=== PATIENT | female | born 1975 | race Caucasian/White ===

== ENCOUNTER 2018-07-13 00:19 | Inpatient (IN) ==
[2018-07-13] MEDS ORDERED: ONDANSETRON INJ 2 MG/ML 2 ML VIAL IV STA (00:38)
[2018-07-13] MEDS ORDERED: MoRPHine SULFATE 4 MG/ML 1 ML CARP\\VIAL IV STA (00:38)
[2018-07-13] MEDS ORDERED: VANCOMYCIN CONSULT ACTIVE PRN (00:39)
[2018-07-13] MEDS ORDERED: VANCOMYCIN HCL 1,000 MG/270 ML BAG IV STA (00:39)
[2018-07-13] MEDS ORDERED: PIPERACILL/TAZOBAC CONSULT ACTIVE PRN (00:42)
[2018-07-13] MEDS ORDERED: PIPERACILLIN/TAZOBACTAM 4.5 GM/120 ML BAG IV ONE (00:42)
[2018-07-13] MEDS ORDERED: SODIUM CHLORIDE 0.9% 1000ML 1,000 ML IV SCH (00:45)
[2018-07-13 01:09] LABS: Basophils # (auto) 0.02 K/uL (0-0.2); Basophils % (auto) 0.1 %; Eosinophils # (auto) 0.28 K/uL (0-0.5); Eosinophils % (auto) 1.4 %; Hematocrit (blood only) 43.8 % (37-47); Hemoglobin 14.9 g/dL (12.0-16.0); Immature Granulocytes # (auto) 0.08 K/uL (0.00-0.02); Immature Granulocytes % (auto) 0.4 %; Lymphocytes # (auto) 1.36 K/uL (1.2-3.4); Lymphocytes % (auto) 6.8 %; Mean Corpuscular Volume 96.9 fL (80-100); Mean Platelet Volume 9.8 fL (7.4-10.4); Monocytes # (auto) 1.45 K/uL (0.11-0.59); Monocytes % (auto) 7.2 %; Neutrophils # (auto) 16.91 K/uL (1.4-6.5); Neutrophils % (auto) 84.1 %; Platelet Count 222 K/uL (130-400); RDW Coefficient of Variation 14.8 % (11.5-14.5); RDW Standard Deviation 52.4 fL (36.4-46.3); Red Blood Count 4.52 M/uL (4.2-5.4)
[2018-07-13 01:21] LABS: Albumin Level 3.1 gm/dl (3.4-5.0); BUN Creatinine Ratio 10.3 (10-20); Calcium 7.7 mg/dl (8.5-10.1); Creatinine Clr Calc Pharmacy 120.5 ml/min; Est GFR (African American) 135.6; Potassium 3.7 mmol/L (3.5-5.1)
[2018-07-13 01:24] LABS: Bilirubin,Total 0.5 mg/dl (0.2-1); Globulin 3.1 gm/dl (2.5-4.0); Total Protein 6.2 gm/dl (6.4-8.2)
[2018-07-13] MEDS ORDERED: IOVERSOL 100ml IV PRN (01:50)
[2018-07-13] MEDS ORDERED: HYDROmorphone INJ 0.5 MG/0.5 ML SYR IV STA ×2 (01:58→02:39)
--- NOTE | 2018-07-13 03:16 | History & Physical Report ---
Date of Service July 13, 2018 Assessment & Plan (1) Facial abscess: Ms. Bojorquez is a 42-year-old female who presents to the emergency department due to right-sided facial pain and swelling. ED course: 4mg IV morphine sulfate, 4mg IV zofran, 4.5g IV Zosyn, 1g IV vancomycin, 1L NS bolus, 0.5mg dilaudid x2. -admit to med/surg -patient afebrile, but does have an elevated WCC of 20.10. Lactate level normal. -CT neck -> 3.3 x 0.8cm abscess along right hemimandible w/regional soft tissue swelling and reactive lymphadenopathy. -no airway compromise -bcx drawn and pending -ENT consult -> abscess will likely require drainage -NPO -Received zosyn and vancomycin in ED -> continue zosyn, with additional of flagyl -1g IV Tylenol q8h and 1mg dilaudid q4h prn pain -zofran 4mg q6h prn nausea Epigastric Pain -likely secondary to poor PO intake & high dose ibuprofen use -40mg IV Protonix daily ordered, can transition to PO when able -caution w/further NSAID use Smoking Hx -pt states she does not want nicotine patch at this time -smoking cessation counselling Code status: FULL DVT Prophylaxis: SCDs in anticipation of abscess drainage Disposition: admit to med/surg F/E/N: NPO. No significant electrolyte abnormalities noted. LR @ 100mls/hr x2 bags. (2) Smoking greater than 25 pack years: (3) Epigastric pain: History of Present Illness Primary Care Provider: NO PCP Ms. Bojorquez is a 42-year-old female who presents to the emergency department due to right-sided facial pain and swelling. The patient states that she saw her dentist on June 05, due to having a broken tooth. The dentist put her on penicillin, and referred her to an oral surgeon for removal of the tooth. She states that she had trouble with her back, and had to see an orthopedic surgeon, and therefore put her dental issues on hold. She reports that on Monday, 5 days ago, she developed pain in the right side of her mouth. She saw her dentist again on Monday, who put her back on penicillin. On , yesterday, she noted that the right side of her face was swollen, she was in a tremendous amount of pain and was vomiting. She denies fever or chills. She states that she was using 4 tablets of [id number] Advil every 4 hours for the pain, as well as "lots of Tylenol." She states that she has had no trouble breathing, but does have trouble opening her mouth, and has only been able to tolerate liquids over the last 24 hours. PMHx: Asthma, uses inhalers infrequently PSHx: Cold knife cone for abnormal Pap smears, 2 prior back surgeries, tonsillectomy Meds: No daily medications Social hx: She builds furniture for work. Smoker -> approximately 1 pack/day for the past 25 years. She states she consumes alcohol on weekends, and denies use of recreational drugs. Allergies Allergy/AdvReac Type Severity Reaction Status Date / Time Sulfa (Sulfonamide Allergy Severe Swelling Verified 07/13/18 01:17 Antibiotics) of Lip/Tongue/Throat Home Medications Home Medications Medication Instructions Recorded Confirmed Type penicillin V potassium 500 mg PO QID 07/13/18 07/13/18 History Past Med/Surg History Medical History Asthma Social History Preferred Language: Swedish Communication Ability: Effective Inspector Air Carrier Required: No Beliefs That Will Affect Care: None Current Living Situation: Other Other Information That Helps Us Care for You: No Feels Safe at Home: Yes Smoking Status: Current every day smoker Hx Alcohol Use: Yes Hx Substance Use: No Review of Systems Constitutional: no fever and no chills Respiratory: no cough, no chest congestion, no dyspnea and no wheezing Cardiovascular: no chest pain, no syncope, no edema and no calf pain Gastrointestinal: + abdominal pain (epigastric pain), + nausea and + vomiting; no change in bowel habits Genitourinary (Female): no dysuria and no urinary frequency Integumentary: no rash and no lesions Physical Exam Vital Signs (Past 24 Hours): Last Vital Signs Temp 36.9 C 07/13/18 00:20 Pulse 91 H 07/13/18 02:46 Resp 14 07/13/18 02:46 BP 133/82 07/13/18 02:46 Pulse Ox 97 07/13/18 02:46 Constitutional: WD/WN, vitals as above Tearful, appears uncomfortable Eyes: PERRL, conjunctivae normal, anicteric sclerae ENMT: Mouth: + dentition abnormality (swelling and erythema on inside of buccal membrane on right) and + poor dentition Right sided facial swelling in perioral region. Warm and tender touch. Decreased jaw opening. Respiratory: normal respiratory effort, lungs clear to auscultation Cardiovascular: RRR, no murmur, no edema Gastrointestinal (Abdomen): Percussion/Palpation: + abdomen tender (tender in epigastric region) and abdomen soft; no guarding and abdomen not rigid Skin: no rashes, warm and dry Results & Data Laboratory Results Laboratory Results - last 24 hr 07/13/18 07/13/18 07/13/18 00:50 00:50 00:55 WBC 20.10 H RBC 4.52 Hgb 14.9 Hct 43.8 MCV 96.9 MCH 33.0 MCHC 34.0 RDW Std Deviation 52.4 H RDW Coeff of [place] 14.8 H Plt Count 222 MPV 9.8 Immature Gran % (Auto) 0.4 Neut % (Auto) 84.1 Lymph % (Auto) 6.8 [place] % (Auto) 7.2 Eos % (Auto) 1.4 Baso % (Auto) 0.1 Immature Gran # (Auto) 0.08 H Neut # (Auto) 16.91 H Lymph # (Auto) 1.36 [place] # (Auto) 1.45 H Eos # (Auto) 0.28 Baso # (Auto) 0.02 Sodium 139 Potassium 3.7 Chloride 110 H Carbon Dioxide 21 Anion Gap 8.0 BUN 5 L Creatinine 0.52 L Est Cr Clr Drug Dosing 120.5 Est GFR ( Amer) 135.6 Est GFR (Non-Af Amer) 117.0 BUN/Creatinine Ratio 10.3 Glucose 100 H Lactate 0.7 Calcium 7.7 L Total Bilirubin 0.5 AST 21 ALT 33 Alkaline Phosphatase 59 Total Protein 6.2 L Albumin 3.1 L Globulin 3.1 Albumin/Globulin Ratio 1.0 Supervising Physician Co-Signing Physician Notes 42 y/o F without a significant medical history aside from smoking and poor dentition. She recently developed a dental infection owing to a broken tooth. She was placed on PCN and referred to a an cloth weigher for extraction. She did not f/u in a timely manner. She presents with impressive swelling pof the R side of her face ad reports fevers as well. A 3cm abscess and facial cellulitis were confirmed on imaging. OE: AAO x 3 Facial asymmetry is noted and there is inflammation inside her mouth on the R S1,2 R CTAB NT, ND No CCE P: She is placed on Zosyn and Flagyl per review of guidelines. Analgesics and IVF provided. We will consult oral surgery She has been advised that cigarette smoking can be hazardous to her health Resident Activity Tracking Resident Involvement: Resident Care Provided Care Provided: Adult Hospital Medicine
--- NOTE | 2018-07-13 03:38 | Emergency Department Note ---
History of Present Illness General Chief complaint: Dental/Oral Stated complaint: DENTAL PAIN Time Seen by Provider: 07/13/18 00:27 History of Present Illness Maximum Pain Intensity: 10 This is a 42-year-old female presenting to the emergency department for evaluation of right-sided facial swelling and pain that is been worsening over the past few days. The patient states that she has a known tooth in the right lower jaw that needs pulled. The patient states that she had an appointment for extraction, but had to postpone it. She followed up with her dentist 2 days ago and was started on penicillin. The patient has taken 2 days worth of the penicillin but states that her facial pain and swelling has worsened. Patient was not able to sleep tonight due to her symptoms. She rates her pain a 10/10. She is able to breathe without difficulty and eat and drink as normal. She is not diabetic. She has been taking Motrin with minimal improvement of symptoms. Home Medications Home Medications Medication Instructions Recorded Confirmed Type penicillin V potassium 500 mg PO QID 07/13/18 07/13/18 History Allergies Allergy/AdvReac Type Severity Reaction Status Date / Time Sulfa (Sulfonamide Allergy Severe Swelling Verified 07/13/18 01:17 Antibiotics) of Lip/Tongue/Throat Past Med/Surg History Medical History Asthma Surgical History History of tonsillectomy Previous back surgery Social History Feels Safe at Home: Yes Smoking Status: Current every day smoker Review of Systems A total of 10 systems reviewed and were otherwise negative Physical Exam Vital Signs Vital Signs - 24 hr 07/13/18 00:20 07/13/18 01:50 07/13/18 02:46 Temperature 36.9 C Temperature Source Oral Sepsis Recent Fever Within 48 Hours No Sepsis Action Taken by Nursing No Action Required Pulse Rate 107 H Pulse Rate [Apical] 96 H 91 H Respiratory Rate 18 15 14 Respiratory Effort / Characteristics Non-Labored Non-Labored Non-Labored Respiratory Depth Normal Normal Normal Respiratory Pattern Regular Regular Blood Pressure 157/89 H Blood Pressure [Right Arm] 141/96 H 133/82 Blood Pressure Mean 111 Blood Pressure Mean [Right Arm] 111 99 Blood Pressure Position [Right Arm] Sitting Pulse Oximetry 97 97 97 Oxygen Delivery Method Room Air Room Air Room Air VITALS: Vitals are noted on the nurse's note and reviewed by myself. Vital signs stable. GENERAL: Well-developed, well-nourished, white female, who is in no acute distress and resting comfortably. Patient is cooperative with the examination. HEAD: Normocephalic atraumatic. EARS: External ear normal. External auditory canals clear, tympanic membranes pearly hager without erythema or effusion bilaterally. EYES: Pupils equal round and reactive to light and accommodation. Conjunctivae without injection, sclerae without icterus. Extraocular movements intact. NOSE: Patent, turbinates without inflammation or discharge. MOUTH: Mucous membranes moist. Tonsils are not enlarged. Pharynx without erythema, blood, or exudate. Uvula midline. Airway patent. Dentition and overall poor repair. The right first molar is fractured in the posterior aspect of the tooth and is very tender on percussion. No tenderness underneath the tongue. NECK: No significant posterior cervical tenderness. HEART: Regular rate and rhythm without murmurs gallops or rubs. LUNGS: Clear to auscultation bilaterally without wheezes, rales or rhonchi. No retractions or accessory muscle use. ABDOMEN: Positive normal bowel sounds x 4. Soft, nontender, without masses or organomegaly. MUSCULOSKELETAL: No muscle atrophy, erythema, or edema noted. Full range of motion in all extremities NEURO: Patient was alert and oriented to person place and time. CN II through XII grossly intact. SKIN: The skin of the face is significantly edematous extending essentially from the line of the mandible to the right ear and into the soft tissue of the right side neck above the right clavicle. This area is very firm without obvious fluctuance. This area is highly concerning for cellulitis. Course Administered Medications Ioversol (Optiray 320 100ml) 100 ml IV ONCE PRN PRN Reason: Interaction Checking Stop: 07/17/18 01:49 Last Admin: 07/13/18 01:50 Dose: 92 ml Documented by: [id number] Discontinued Medications Hydromorphone HCl (Dilaudid) 0.5 mg IV NOW STA Stop: 07/13/18 01:59 Last Admin: 07/13/18 02:02 Dose: 0.5 mg Documented by: [id number] Hydromorphone HCl (Dilaudid) 0.5 mg IV NOW STA Stop: 07/13/18 02:40 Last Admin: 07/13/18 02:48 Dose: 0.5 mg Documented by: [id number] Piperacillin Sod/Tazobactam Sod (Zosyn) 4.5 gm in 120 mls @ 240 mls/hr IV NOW ONE Stop: 07/13/18 01:11 Last Infusion: 07/13/18 01:29 Dose: 0 mls/hr Documented by: [id number] Admin: 07/13/18 00:58 Dose: 240 mls/hr Documented by: [id number] Sodium Chloride (Nss 1000ml) 1,000 mls @ 999 mls/hr IV .Q1H1M ANA Stop: 07/13/18 01:45 Last Infusion: 07/13/18 01:52 Dose: 0 mls/hr Documented by: [id number] Admin: 07/13/18 00:58 Dose: 999 mls/hr Documented by: [id number] Vancomycin HCl (Vancomycin Hcl) 1,000 mg in 270 mls @ 125 mls/hr IV NOW STA Stop: 07/13/18 02:48 Last Admin: 07/13/18 01:56 Dose: 125 mls/hr Documented by: [id number] Morphine Sulfate (Morphine Sulfate) 4 mg IV NOW STA Stop: 07/13/18 00:39 Last Admin: 07/13/18 00:57 Dose: 4 mg Documented by: [id number] Ondansetron HCl (Zofran) 4 mg IV NOW STA Stop: 07/13/18 00:39 Last Admin: 07/13/18 00:57 Dose: 4 mg Documented by: [id number] Medical Decision Making Differential Diagnosis Differential diagnosis includes: Etiologies such as cellulitis, Ludewig's, dental infection, abscess, osteomyelitis, MRSA infection, DVT, necrotizing fasciitis, dermatitis, drug eruption, as well as others were entertained Laboratory Data Result diagrams: 07/13/18 00:55 07/13/18 00:50 Lab Results 07/13/18 07/13/18 07/13/18 Range/Units 00:50 00:50 00:55 WBC 20.10 H (4.8-10.8) K/uL RBC 4.52 (4.2-5.4) M/uL Hgb 14.9 (12.0-16.0) g/dL Hct 43.8 (37-47) % MCV 96.9 (80-100) fL MCH 33.0 (25-34) pg MCHC 34.0 (32-36) g/dL RDW Std Deviation 52.4 H (36.4-46.3) fL RDW Coeff of [place] 14.8 H (11.5-14.5) % Plt Count 222 (130-400) K/uL MPV 9.8 (7.4-10.4) fL Immature Gran % (Auto) 0.4 % Neut % (Auto) 84.1 % Lymph % (Auto) 6.8 % [place] % (Auto) 7.2 % Eos % (Auto) 1.4 % Baso % (Auto) 0.1 % Immature Gran # (Auto) 0.08 H (0.00-0.02) K/uL Neut # (Auto) 16.91 H (1.4-6.5) K/uL Lymph # (Auto) 1.36 (1.2-3.4) K/uL [place] # (Auto) 1.45 H (0.11-0.59) K/uL Eos # (Auto) 0.28 (0-0.5) K/uL Baso # (Auto) 0.02 (0-0.2) K/uL Sodium 139 (136-145) mmol/L Potassium 3.7 (3.5-5.1) mmol/L Chloride 110 H (98-107) mmol/L Carbon Dioxide 21 (21-32) mmol/L Anion Gap 8.0 (3-11) BUN 5 L (7-18) mg/dl Creatinine 0.52 L (0.6-1.2) mg/dl Est Cr Clr Drug Dosing 120.5 ml/min Est GFR ( Amer) 135.6 Est GFR (Non-Af Amer) 117.0 BUN/Creatinine Ratio 10.3 (10-20) Glucose 100 H (70-99) mg/dl Lactate 0.7 (0.4-2.0) mmol/L Calcium 7.7 L (8.5-10.1) mg/dl Total Bilirubin 0.5 (0.2-1) mg/dl AST 21 (15-37) U/L ALT 33 (12-78) U/L Alkaline Phosphatase 59 (45-117) U/L Total Protein 6.2 L (6.4-8.2) gm/dl Albumin 3.1 L (3.4-5.0) gm/dl Globulin 3.1 (2.5-4.0) gm/dl Albumin/Globulin Ratio 1.0 (0.9-2) Imaging Data Radiologist's Impression: Preliminary Findings Only See Final Report For Complete Findings CT NECK: 3.3 x 0.8 cm abscess along the right hemimandible. There is regional soft tissue swelling and reactive lymphadenopathy. A large dental cavity is present at a right mandibular molar tooth. There is mild associated bone loss. MDM Narrative Physical exam and history were performed. Nursing notes, EMR, and Medication List were personally reviewed. Patient appears to have significant infection of the right side face into her right side neck. Presumably this is from a dental source. The patient has been on Pen-Vee K for the past 2 days. IV access was established and labs were obtained. Blood cultures x2 were gathered. The patient was hydrated with normal saline and given IV morphine and Zofran for comfort. The patient was sent to CT scan to further evaluate her infection. The patient's blood work is as above and was reviewed. She does have a markedly elevated white blood cell count of 20,000 with associated shift. She does not h ave a significant anemia or gross electrolyte imbalance. Lactic acid is negative with cultures pending. I did discuss appropriate care with pharmacy as Unasyn is on back order. The patient was treated with vancomycin and Zosyn here in the department. Patient CT scan was reviewed by myself and radiology. CT appears to show a large approximately 3 x 1 cm abscess with surrounding cellulitis. The patient did require additional pain medication and was given a small amount of IV Dilaudid. Overall the patient does not appear well for discharge home. The case was discussed with the [facility] hospitalist team. Please see their dictation for further patient course, plan, and disposition. The chart was completed utilizing [employer] Speech Voice Recognition Software. Grammatical errors, random word insertions, pronoun errors, and incomplete sentences are an occasional consequence of this system due to software limitations, ambient noise, and hardware issues. Any formal questions or con cerns about the content, text, or information contained within the body of this dictation should be directly addressed to the provider for clarification. . Impression & Plan Facial abscess, Cellulitis of face Discharge Plan Visit Data Chief Complaint: Dental/Oral Stated Complaint: DENTAL PAIN ED Provider: Dixie Galindo ED Midlevel Provider: Pavel Garcia Discharge Problem: Facial abscess, Cellulitis of face Discharge Instructions Interventions: ED Discharge Assessment Last Done: 07/13/18 03:29
[2018-07-13] MEDS: HYDROmorphone INJ 1 MG/ML SYRINGE IV PRN ×3 (04:31→18:54)
[2018-07-13] MEDS: LACTATED RINGER'S 1,000 ML IV SCH ×2 (05:02→14:48)
[2018-07-13] MEDS: metroNIDAZOLE 500 MG/100 ML BAG IV SCH ×3 (05:03→20:42)
[2018-07-13] MEDS: PANTOprazole 40 MG in SYRINGE 0 ML IV SCH (05:03)
[2018-07-13] MEDS: ONDANSETRON INJ 2 MG/ML 2 ML VIAL IV SCH ×4 (05:03→20:48)
[2018-07-13] MEDS ORDERED: PNEUMOCOCCAL POLYSACCHARIDES 25 MCG/0.5 ML VIAL/SYR IM ONE (05:15)
[2018-07-13] MEDS ORDERED: INFLUENZA VIRUS QUAD VACCINE 0.5 ML SYR IM ONE (05:15)
[2018-07-13] MEDS ORDERED: PNEUMOCOCCAL ADMINISTRATION CHARGE ONE (05:15)
[2018-07-13] MEDS ORDERED: INFLUENZA ADMINISTRATION CHARGE ONE (05:15)
[2018-07-13] MEDS: PIPERACILLIN/TAZOBACTAM 3.375 GM in DEXTROSE 5% 100 ML IV SCH ×3 (06:27→22:28)
--- NOTE | 2018-07-13 07:22 | CT Scan Report ---
CT soft tissue neck w con CLINICAL HISTORY: 42 years-old Female presenting with Right side facial cellulitis. TECHNIQUE: Multidetector CT of the neck was performed after the administration of intravenous contras t. IV contrast: 92 mL of Optiray 320. One or more dose lowering techniques were used consistent with the principles of ALARA (as low as reasonably achievable), including automatic exposure control, mA o r kV adjustment to individual patient size, and/or use of iterative reconstruction. COMPARISON: None. CT DOSE (mGy.cm): The estimated cumulative dose is 482.28 mGy.cm. FINDINGS: Crew Attendant topogram: Unremarkable. At the site of clinical concern along the right body of the mandible is a rim-enhancing 3.6 x 0.5 cm fluid collection consistent with odontogenic abscess. This is primarily along the buccal aspect of th e right body of the mandible. Small foci of internal gas. Associated large dental caries of the right mandibular first molar, which also has an associated periapical lucency. No gross cortical breakthro ugh at the level of the periapical lucency. Several teeth are absent with periapical lucency persisti ng at the surgically removed left mandibular first molar. Extensive soft tissue swelling and infiltration in the right mandibular region. There is edema of matty rounding structures including the platysma muscle and masseter muscle. The parapharyngeal fat planes are preserved. Aerodigestive tract patent. Multiple prominent cervical lymph nodes are evident greate r on the right. The largest lymph node measures 1.3 cm in the jugulodigastric region. Parotid and sub mandibular glands normal. Few subcentimeter nodules in the thyroid gland. Paranasal sinuses and mastoid air cells clear. Limited intracranial evaluation within normal limits. Vasculature patent. Mild degenerative changes of the cervical spine at C6-7. Several ill-defined bila teral primarily groundglass foci noted in the upper lobes the largest on the right (series 3 image [id number]). Background centrilobular and paraseptal emphysema. Pleural parenchymal scarring at the apices. Mi ld bronchial wall thickening. IMPRESSION: 1. Odontogenic abscess measuring 3.6 x 0.5 cm along the right body of the mandible. This is associat ed with prominent dental caries and periapical lucency/abscess at the right first mandibular molar. 2. Reactive lymphadenopathy. 3. Smoking related lung injury with emphysema, bronchitis, and suspected respiratory bronchiolitis. A dedicated nonurgent outpatient chest CT is recommended to exclude a discrete subsolid or solid nodu le, especially given the patient's high risk status. The report will be called/faxed according to standard departmental protocol. Electronically signed by: Migue Shelton M.D. 07/13/2018 7:21 AM
[2018-07-13] MEDS: NICOTINE 14 MG/24 HR PATCH TD SCH (11:48)
[2018-07-13] MEDS: ACETAMINOPHEN 1,000 MG/100 ML VIAL IV PRN ×2 (13:03→21:55)
--- NOTE | 2018-07-13 17:34 | Family Medicine Progress Note ---
Date of Service July 13, 2018 Assessment & Plan (1) Facial abscess: Ms. Bojorquez is a 42-year-old female who presents to the emergency department due to right-sided facial pain and swelling. ED course: 4mg IV morphine sulfate, 4mg IV zofran, 4.5g IV Zosyn, 1g IV vancomycin, 1L NS bolus, 0.5mg dilaudid x2. -patient afebrile, but does have leukocytosis of 20.10. Lactate level normal. -CT neck -> 3.6 x 0.5cm abscess along right hemimandible w/regional soft tissue swelling and reactive lymphadenopathy. -no airway compromise -bcx drawn and pending -OMFS consult -> abscess will likely require drainage -NPO -Received zosyn and vancomycin in ED -> continue zosyn, with additional of flagy l -1g IV Tylenol q8h and 1mg dilaudid q4h prn pain -zofran 4mg q6h prn nausea Code status: FULL DVT Prophylaxis: SCDs in anticipation of abscess drainage Disposition: admit to med/surg F/E/N: NPO. No significant electrolyte abnormalities noted. LR @ 100mls/hr x2 bags. (2) Smoking greater than 25 pack years: - nicotine patch ordered -smoking cessation counselling (3) Epigastric pain: -noted by admitting physician, no complaints this morning -admitting physician noted likely secondary to poor PO intake & high dose ibuprofen use -40mg IV Protonix daily ordered by night and will continue -caution w/further NSAID use Supervising Physician Co-Signing Physician Notes Patient seen and examined with Dr. Sanchez. Agree with history, physical exam findings, assessment and plan of care as outlined. In brief, Ms Bojorquez is a 42 year old female admitted with pyogenic dental abscess and overlying facial cellulitis after failed outpatient PCN. Swelling over the right cheek and mandible. Poor dentition. Erythema over the right cheek and lateral neck. 1. pyogenic dental abscess with overlying facial cellulitis. Continue with zosyn and flagyl. Seen by OMFS this evening. Plans for OR tomorrow morning. Will likely be able to de-escalate antibiotics after OR. Will coordinate with OMFS. 2. tobacco use: nicotine patch. Dispo: pending clinical improvement. Aubrie Smith continues to have pain to abscess site of right jaw. She states she did not notice erythema of right neck prior to arrival to ED. She denies ear pain, difficulty handling secretions, fever, nausea, difficulty breathing. Physical Exam Vital Signs (Past 24 Hours): Last Vital Signs Temp 37.3 C 07/13/18 15:25 Pulse 78 07/13/18 15:25 Resp 18 07/13/18 15:25 BP 124/74 07/13/18 15:25 Pulse Ox 96 07/13/18 15:25 Constitutional: WD/WN, vitals as above + ill appearing appears in pain/uncomfortable ENMT: Mouth: + dental caries (diffuse); no muffled voice Mouth / Teeth: 1. absent 2. absent 3. caries cracked no noted swelling or lifting of floor of mouth; significant swelling to right side of face over mandible; no rotation of right ear noted Neck: erythema to anterior right neck Respiratory: normal respiratory effort, lungs clear to auscultation Cardiovascular: RRR, no murmur, no edema Neurologic: moves all extremities and awake Psychiatric: A+Ox3, euthymic affect Eye Contact: good eye contact Results & Data Laboratory Results Laboratory Results - last 24 hr 07/13/18 07/13/18 07/13/18 00:50 00:50 00:55 WBC 20.10 H RBC 4.52 Hgb 14.9 Hct 43.8 MCV 96.9 MCH 33.0 MCHC 34.0 RDW Std Deviation 52.4 H RDW Coeff of [place] 14.8 H Plt Count 222 MPV 9.8 Immature Gran % (Auto) 0.4 Neut % (Auto) 84.1 Lymph % (Auto) 6.8 [place] % (Auto) 7.2 Eos % (Auto) 1.4 Baso % (Auto) 0.1 Immature Gran # (Auto) 0.08 H Neut # (Auto) 16.91 H Lymph # (Auto) 1.36 [place] # (Auto) 1.45 H Eos # (Auto) 0.28 Baso # (Auto) 0.02 Sodium 139 Potassium 3.7 Chloride 110 H Carbon Dioxide 21 Anion Gap 8.0 BUN 5 L Creatinine 0.52 L Est Cr Clr Drug Dosing 120.5 Est GFR ( Amer) 135.6 Est GFR (Non-Af Amer) 117.0 BUN/Creatinine Ratio 10.3 Glucose 100 H Lactate 0.7 Calcium 7.7 L Total Bilirubin 0.5 AST 21 ALT 33 Alkaline Phosphatase 59 Total Protein 6.2 L Albumin 3.1 L Globulin 3.1 Albumin/Globulin Ratio 1.0 Medications Administered Hydromorphone HCl (Dilaudid) 1 mg IV Q4H PRN PRN Reason: Moderate Pain Stop: 07/27/18 04:59 Last Admin: 07/13/18 11:23 Dose: 1 mg Documented by: [id number] Admin: 07/13/18 04:31 Dose: 1 mg Documented by: [id number] Metronidazole (Flagyl) 500 mg in 100 mls @ 100 mls/hr IV Q8H ANA Stop: 07/23/18 03:59 Last Infusion: 07/13/18 13:01 Dose: 0 mls/hr Documented by: [id number] Admin: 07/13/18 12:00 Dose: 100 mls/hr Documented by: [id number] Infusion: 07/13/18 06:27 Dose: 0 mls/hr Documented by: [id number] Admin: 07/13/18 05:03 Dose: 100 mls/hr Documented by: [id number] Acetaminophen (Ofirmev) 1,000 mg in 100 mls @ 400 mls/hr IV Q8H PRN PRN Reason: Pain or Fever Stop: 08/12/18 03:43 Last Infusion: 07/13/18 13:30 Dose: 0 mls/hr Documented by: [id number] Admin: 07/13/18 13:03 Dose: 400 mls/hr Documented by: [id number] Lactated Ringer's (Lr) 1,000 mls @ 100 mls/hr IV .Q10H ANA Stop: 07/13/18 23:43 Last Admin: 07/13/18 14:48 Dose: 100 mls/hr Documented by: [id number] Infusion: 07/13/18 14:48 Dose: 100 mls/hr Documented by: [id number] Infusion: 07/13/18 11:00 Dose: 100 mls/hr Documented by: [id number] Infusion: 07/13/18 06:40 Dose: 0 mls/hr Documented by: [id number] Infusion: 07/13/18 05:07 Dose: 0 mls/hr Documented by: [id number] Admin: 07/13/18 05:02 Dose: 100 mls/hr Documented by: [id number] Pantoprazole Sodium 40 mg/ (Syringe) 10 mls @ 5 mls/min IV DAILY@1100 [facility] Stop: 08/12/18 03:59 Last Admin: 07/13/18 05:03 Dose: 5 mls/min Documented by: [id number] Piperacillin Sod/Tazobactam (Sod 3.375 gm/ Dextrose) 115 mls @ 28.75 mls/hr IV Q8H [facility]; Protocol Stop: 07/23/18 05:59 Last Admin: 07/13/18 14:49 Dose: 28.8 mls/hr Documented by: [id number] Infusion: 07/13/18 11:08 Dose: 0 mls/hr Documented by: [id number] Admin: 07/13/18 06:27 Dose: 28.8 mls/hr Documented by: [id number] Ioversol (Optiray 320 100ml) 100 ml IV ONCE PRN PRN Reason: Interaction Checking Stop: 07/17/18 01:49 Last Admin: 07/13/18 01:50 Dose: 92 ml Documented by: [id number] Nicotine (Nicoderm Cq) 14 mg TD QAM [facility] Stop: 08/12/18 08:59 Last Admin: 07/13/18 11:48 Dose: 14 mg Documented by: [id number] Ondansetron HCl (Zofran) 4 mg IV Q6H [facility] Stop: 08/12/18 03:43 Last Admin: 07/13/18 16:01 Dose: Not Given Documented by: [id number] Admin: 07/13/18 11:23 Dose: 4 mg Documented by: [id number] Admin: 07/13/18 05:03 Dose: 4 mg Documented by: [id number]
[2018-07-13] MEDS ORDERED: PANTOprazole 40 MG TAB PO SCH (21:00)
--- NOTE | 2018-07-14 00:23 | Consultation Report ---
DATE OF CONSULTATION: 07/13/2018 BRIEF HISTORY: I was asked to see Mrs. Bojorquez today for an acute right facial swelling and an infected tooth, lower right side. According to Mrs. Bojorquez, she experienced some pain and discomfort of tooth #30 approximately a few weeks ago. She wears a partial denture and the partial denture is retained on this tooth. Because the partial denture was moving, it caused this tooth to chip further. The tooth fractured and after the tooth fractured, she started to get some slight infection. She went back to her dentist and the dentist prescribed an antibiotic in the form of, she believes, penicillin. The patient was still having some discomfort at the beginning of this week, but then her swelling took a turn for the worse and she became much more swollen and developed mandibular trismus on . She came to the Emergency Room Monday morning and was admitted with a diagnosis of acute facial cellulitis spreading down the submandibular area, the subperiosteal area, and migrating down along the facial planes in the submental area and down on to the neck. In addition, the patient's whole lower lip was swollen and she had difficulty opening her mouth. The Emergency Room staff was concerned that this could develop into a Shane's angina, especially after they took a CT scan and it demonstrated a 3 x 5 cm drainable area of the right submandibular area. The patient was admitted to the medical service. I was asked to consult on this patient and to render an opinion concerning her facial swelling. When I evaluated Sarah, it was obvious that she had some acute facial swelling and trismus of the lower jaw. Intraorally, she had a lot of swelling in the subperiosteal space adjacent to the right lower jaw as well as a carious tooth #30. There was some swelling in the floor of the mouth as well. There was a lot of redness in the submandibular and submental area. The patient does have some spontaneous drainage distal to the tooth #30, but is not adequate enough to consider this as a treatment. I discussed with Mrs. Bojorquez the fact that I will need to take it to the operating room tomorrow morning and under a general anesthetic, we will then extract tooth #30 and then we will do a through and through drainage externally through the submandibular space, the sublingual space, and the subperiosteal space. We will then have her come back to the room, spend time on IV antibiotics, and I will then see her on Monday. If she is improving, there is good possibility that we could let her go Monday and then I would follow her in the office for drain removal and for resolution of her infection. Her past medical history is significant for the fact that she is a heavy smoker and has some issues with her lungs that we will need to address postoperatively. I did recommend that she get a lung CT scan for some nodules that were seen on the chest x-ray. I discussed the case with the medical office professional instructor that is taking care of her and informed him that I will allow Mrs. Bojorquez to have a diet as tolerated this evening. We will then keep her n.p.o. after midnight with the OR being scheduled tomorrow morning. Consent was signed. I reviewed with her the risks, benefits, and complications of the surgery and the risks and complications of not doing the surgery. Basically, Mrs. Bojorquez does not have any choice, we have to get the drainage done. Otherwise, this could spread into a Shane's angina and cause much more serious complications. So again, thank you very much for allowing me to participate in the care of your patient. We will take care of her tomorrow morning and I will keep you abreast of our findings and when she can be discharged on oral antibiotics.
[2018-07-14] MEDS: PIPERACILLIN/TAZOBACTAM 3.375 GM in DEXTROSE 5% 100 ML IV SCH ×3 (06:20→22:31)
[2018-07-14] MEDS: metroNIDAZOLE 500 MG/100 ML BAG IV SCH ×2 (06:21→13:27)
[2018-07-14] MEDS: ONDANSETRON INJ 2 MG/ML 2 ML VIAL IV SCH ×4 (06:23→22:32)
[2018-07-14] MEDS: HYDROmorphone INJ 1 MG/ML SYRINGE IV PRN (06:25)
[2018-07-14 06:40] LABS: Basophils # (auto) 0.02 K/uL (0-0.2); Basophils % (auto) 0.1 %; Eosinophils # (auto) 0.29 K/uL (0-0.5); Eosinophils % (auto) 1.8 %; Hematocrit (blood only) 38.2 % (37-47); Hemoglobin 12.8 g/dL (12.0-16.0); Immature Granulocytes # (auto) 0.04 K/uL (0.00-0.02); Immature Granulocytes % (auto) 0.3 %; Lymphocytes # (auto) 1.58 K/uL (1.2-3.4); Lymphocytes % (auto) 10.1 %; Mean Corpuscular Hgb Conc 33.5 g/dL (32-36); Mean Corpuscular Volume 96.7 fL (80-100); Mean Platelet Volume 9.6 fL (7.4-10.4); Monocytes # (auto) 1.33 K/uL (0.11-0.59); Monocytes % (auto) 8.5 %; Neutrophils # (auto) 12.42 K/uL (1.4-6.5); Neutrophils % (auto) 79.2 %; Platelet Count 205 K/uL (130-400); RDW Coefficient of Variation 14.6 % (11.5-14.5); RDW Standard Deviation 52.1 fL (36.4-46.3); Red Blood Count 3.95 M/uL (4.2-5.4); White Blood Count 15.68 K/uL (4.8-10.8)
[2018-07-14] MEDS ORDERED: LIDOCAINE/EPINEPHRINE 1% 20 ML VIAL ONE (07:01)
[2018-07-14 07:14] LABS: BUN Creatinine Ratio 8.8 (10-20); Calcium 8.2 mg/dl (8.5-10.1); Creatinine Clr Calc Pharmacy 154.1 ml/min; Est GFR (African American) 143.3; Est GFR (Non-African American) 123.6; Potassium 3.4 mmol/L (3.5-5.1)
[2018-07-14] MEDS ORDERED: PROPOFOL IV EMULSION 10 MG/ML 20 ML VIAL IV ONE (07:15)
[2018-07-14] MEDS ORDERED: ROCURONIUM BROMIDE 10 MG/ML 5 ML VIAL ONE (07:15)
[2018-07-14] MEDS ORDERED: MIDAZOLAM HCL 1 MG/ML 2ML VIAL ONE (07:15)
[2018-07-14] MEDS ORDERED: fentaNYL citrate 100 MCG/2 ML VIAL ONE (07:15)
--- NOTE | 2018-07-14 07:23 | History & Physical Bridge Note ---
Date of Service July 14, 2018 History & Physical Bridge Note I have examined the patient, reviewed the History & Physical and in the interval since the performance of the History & Physical I have noted the following changes of clinical significance: no changes noted
--- NOTE | 2018-07-14 07:46 | Anesthesiology Consultation ---
Date of Service July 14, 2018 Assessment & Plan Chart Review Chart Review: Acceptable Risk for Surgery Consults Requested none NPO Date Last Intake of Fluids: 07/13/18 Time Last Intake of Fluids: 23:59 Date Last Intake of Solids: 07/13/18 Time Last Intake of Solids: 23:59 History Surgery Operation Date: 07/14/18 07:30 Proposed Procedures p Incision and Drainage Right Submandibular Abscess(Right) - Ye Pompa, DMD Height/Weight Height: 5 ft 4 in Weight: 66 kg Allergies Allergy/AdvReac Type Severity Reaction Status Date / Time Sulfa (Sulfonamide Allergy Severe Swelling Verified 07/13/18 01:17 Antibiotics) of Lip/Tongue/Throat Medications Home Medications Medication Instructions Recorded Confirmed Last Taken penicillin V potassium 500 mg PO QID 07/13/18 07/13/18 07/12/18 Active Medications Generic Name Dose Route Start Last Admin Trade Name Freq PRN Reason Stop Dose Admin Hydromorphone HCl 1 mg 07/13/18 05:00 07/14/18 06:25 Dilaudid IV 07/27/18 04:59 1 mg Q4H PRN Administration Moderate Pain Metronidazole 500 mg in 100 mls @ 100 mls/hr 07/13/18 04:00 07/14/18 06:21 Flagyl IV 07/23/18 03:59 100 mls/hr Q8H ANA Administration Acetaminophen 1,000 mg in 100 mls @ 400 mls/hr 07/13/18 03:44 07/13/18 22:28 Ofirmev IV 08/12/18 03:43 Infused Q8H PRN Infusion Pain or Fever Pantoprazole Sodium 40 mg/ 10 mls @ 5 mls/min 07/13/18 04:00 07/13/18 05:03 Syringe IV 08/12/18 03:59 5 mls/min DAILY@1100 ANA Administration Piperacillin Sod/Tazobactam 115 mls @ 28.75 mls/hr 07/13/18 06:00 07/14/18 06:20 Sod 3.375 gm/ Dextrose IV 07/23/18 05:59 28.8 mls/hr Q8H ANA Administration Protocol Ioversol 100 ml 07/13/18 01:50 07/13/18 01:50 Optiray 320 100ml IV 07/17/18 01:49 92 ml ONCE PRN Administration Interaction Checking Miscellaneous 1 ea 07/13/18 21:00 07/13/18 20:47 Remove Nicoderm Patch N/A 08/12/18 20:59 1 ea HS ANA Administration Nicotine 14 mg 07/13/18 11:15 07/13/18 11:48 Nicoderm Cq TD 08/12/18 08:59 14 mg QAM ANA Administration Ondansetron HCl 4 mg 07/13/18 03:44 07/14/18 06:23 Zofran IV 08/12/18 03:43 Not Given Q6H ANA Past Medical History Medical History Asthma Past Surgical History Surgical History History of tonsillectomy Previous back surgery Social History Smoking Status: Current every day smoker tobacco type: cigarettes Smoking cigarettes per day: 20 Hx Alcohol Use: Yes Alcohol type: beer alcohol intake frequency: a few times a week Alcohol Intake Frequency Comment: weekends Hx Substance Use: No Physical Exam Vital Signs Last Vital Signs Temp 36.8 C 07/14/18 00:03 Pulse 70 07/14/18 00:03 Resp 14 07/14/18 00:03 BP 120/75 07/14/18 00:03 Pulse Ox 97 07/14/18 00:03 Testing Laboratory Results 07/14/18 06:30 07/14/18 06:30 07/13/18 00:55 Blood Culture - Preliminary Blood No growth to date. 07/13/18 00:50 Blood Culture - Preliminary Blood No growth to date.
[2018-07-14] MEDS ORDERED: LIDOCAINE HCL 2% 2 ML VIAL/AMP(20MG/ML) INFIL ONE (07:50)
[2018-07-14] MEDS ORDERED: CHLORHEXIDINE GLUCONATE 0.12% 480 ML ONE (07:57)
[2018-07-14] MEDS ORDERED: BUPIVACAINE/EPINEPHRINE 0.5% 1:200,000 1.8 ML CARP ONE (07:58)
[2018-07-14] MEDS ORDERED: LIDOCAINE 2%/EPINEPHRINE 1:100,000 1.8 ML CARTRIDGE ONE (07:58)
--- NOTE | 2018-07-14 08:29 | Post Operative Brief Note ---
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
[2018-07-14] MEDS ORDERED: ePHEDrine sulfate 50 MG/ML AMP IV PRN (09:03)
[2018-07-14] MEDS ORDERED: ATROPINE SULFATE 0.1 MG/ML 10ML SYR IV PRN (09:03)
[2018-07-14] MEDS ORDERED: fentaNYL citrate 100 MCG/2 ML VIAL IV PRN (09:03)
[2018-07-14] MEDS ORDERED: HYDROmorphone INJ 1 MG/ML SYRINGE IV PRN (09:03)
--- NOTE | 2018-07-14 09:44 | Anesthesiology Progress Note ---
Date of Service July 14, 2018 Anesthesia Post Procedure Vital Signs Vital Signs: Temp Pulse Pulse Resp BP BP Pulse Ox 07/14/18 09:20 36.9 C 72 18 128/74 97 07/14/18 09:10 36.9 C 74 18 127/84 98 07/14/18 09:00 86 18 121/65 95 07/14/18 08:50 100 H 18 117/69 100 07/14/18 08:40 100 H 18 133/93 100 07/14/18 08:34 37.0 C 115 H 18 133/89 100 07/14/18 00:03 36.8 C 70 14 120/75 97 07/13/18 15:25 37.3 C 78 18 124/74 96 07/13/18 11:21 37.3 C 87 18 141/87 H 96 Pain Intensity Right Face: Pain Intensity: 8 Notes Mental Status: alert / awake / arousable and participated in evaluation Patient Amnestic to Procedure: Yes Nausea / Vomiting: adequately controlled Pain: adequately controlled Airway Patency, RR, SpO2: stable & adequate BP & HR: stable & adequate Hydration State: stable & adequate Anesthetic Complications: no major complications apparent
[2018-07-14] MEDS: PANTOprazole 40 MG in SYRINGE 0 ML IV SCH (10:37)
[2018-07-14] MEDS: NICOTINE 14 MG/24 HR PATCH TD SCH ×2 (10:37→18:54)
--- NOTE | 2018-07-14 17:14 | Family Medicine Progress Note ---
Date of Service July 14, 2018 Assessment & Plan (1) Facial abscess: Ms. Bojorquez is a 42-year-old female who presents to the emergency department due to right-sided facial pain and swelling. ED course: 4mg IV morphine sulfate, 4mg IV zofran, 4.5g IV Zosyn, 1g IV vancomycin, 1L NS bolus, 0.5mg dilaudid x2. -s/p Incision and Drainage Right Submandibular Abscess pod 0, romi in place. routine post op care -advance diet as tolerated -patient afebrile, WBC 15.68 this am, will continue to trend -CT neck -> 3.6 x 0.5cm abscess along right hemimandible w/regional soft tissue swelling and reactive lymphadenopathy. -bcx drawn and pending -zofran 4mg q6h prn nausea -Zosyn pending cx results -Tylenol 1g TID with oxy 5 mg for breakthrough pain Code status: FULL DVT Prophylaxis: SCDs in anticipation of abscess drainage Disposition: admit to med/surg F/E/N: NPO. No significant electrolyte abnormalities noted. LR @ 100mls/hr x2 bags. (2) Smoking greater than 25 pack years: - nicotine patch ordered -smoking cessation counselling (3) Epigastric pain: -40mg IV Protonix daily -caution w/further NSAID use Supervising Physician Co-Signing Physician Notes Patient seen and examined independently of Dr. Williamson. Agree with history, physical exam findings, assessment and plan of care as outlined. In brief, Ms Bojorquez is a 42 year old female admitted with pyogenic dental abscess and overlying facial cellulitis after failed outpatient PCN. Went to the OR this morning with Dr. Pompa for drainage and drain placement. Swelling over the right cheek and mandible which is improved from yesterday. Poor dentition. Lessening erythema over the right cheek and lateral neck. Bandage over the mandible. 1. pyogenic dental abscess with overlying facial cellulitis s/p drainage in the OR. Continue with zosyn, dc flagyl. Will likely dc on Augmentin. - pain control with Tylenol + oxycodone. 2. tobacco use: nicotine patch. Dispo: hopefully tomorrow if clinically doing well Subjective Pt doing well recovering from surgery, in no acute distress. She denies ear pain, difficulty handling secretions, fever, nausea, difficulty breathing. no acute complaints, routine post op care. Gastrointestinal: + change in bowel habits; no abdominal pain (epigastric pain), no nausea and no vomiting Physical Exam Vital Signs (Past 24 Hours): Last Vital Signs Temp 37 C 07/14/18 15:06 Pulse 101 H 07/14/18 15:06 Resp 18 07/14/18 15:06 BP 140/92 07/14/18 15:06 Pulse Ox 96 07/14/18 15:06 Constitutional: WD/WN, vitals as above not ill appearing Eyes: PERRL, conjunctivae normal, anicteric sclerae ENMT: Mouth: + dentition abnormality (swelling and erythema on inside of buccal membrane on right), + dental caries (diffuse) and + poor dentition; no muffled voice Respiratory: normal respiratory effort, lungs clear to auscultation Cardiovascular: RRR, no murmur, no edema Gastrointestinal (Abdomen): normal bowel sounds, soft, nontender, no hepatosplenomegaly Skin: no rashes, warm and dry Neurologic: moves all extremities and awake Psychiatric: A+Ox3, euthymic affect Eye Contact: good eye contact Resident Activity Tracking Resident Involvement: Resident Care Provided Care Provided: Adult Hospital Medicine
[2018-07-14] MEDS: OXYCODONE HCL SOLN 5 MG/5 ML UDC PO PRN (18:39)
[2018-07-14] MEDS: ACETAMINOPHEN 500 MG TAB PO SCH (20:12)
[2018-07-15] MEDS: ONDANSETRON INJ 2 MG/ML 2 ML VIAL IV SCH ×2 (04:50→10:18)
[2018-07-15] MEDS: PIPERACILLIN/TAZOBACTAM 3.375 GM in DEXTROSE 5% 100 ML IV SCH (04:55)
[2018-07-15] MEDS: OXYCODONE HCL SOLN 5 MG/5 ML UDC PO PRN (04:57)
[2018-07-15 06:09] LABS: Basophils # (auto) 0.01 K/uL (0-0.2); Basophils % (auto) 0.1 %; Eosinophils # (auto) 0.08 K/uL (0-0.5); Eosinophils % (auto) 0.4 %; Hematocrit (blood only) 39.3 % (37-47); Hemoglobin 13.2 g/dL (12.0-16.0); Immature Granulocytes # (auto) 0.06 K/uL (0.00-0.02); Immature Granulocytes % (auto) 0.3 %; Lymphocytes # (auto) 1.57 K/uL (1.2-3.4); Lymphocytes % (auto) 8.7 %; Mean Corpuscular Hgb Conc 33.6 g/dL (32-36); Mean Corpuscular Volume 96.3 fL (80-100); Mean Platelet Volume 9.8 fL (7.4-10.4); Monocytes # (auto) 1.35 K/uL (0.11-0.59); Monocytes % (auto) 7.4 %; Neutrophils # (auto) 15.06 K/uL (1.4-6.5); Neutrophils % (auto) 83.1 %; Platelet Count 238 K/uL (130-400); RDW Coefficient of Variation 14.4 % (11.5-14.5); RDW Standard Deviation 51.2 fL (36.4-46.3); Red Blood Count 4.08 M/uL (4.2-5.4); White Blood Count 18.13 K/uL (4.8-10.8)
[2018-07-15 07:02] LABS: BUN Creatinine Ratio 15.9 (10-20); Calcium 8.6 mg/dl (8.5-10.1); Creatinine Clr Calc Pharmacy 125.6 ml/min; Est GFR (Non-African American) 115.6; Potassium 3.5 mmol/L (3.5-5.1)
[2018-07-15 07:59] VITALS: PULSE 71; TEMP 98.1; O2SAT 98
--- NOTE | 2018-07-15 08:21 | Family Medicine Progress Note ---
Date of Service July 15, 2018 Assessment & Plan (1) Facial abscess: Ms. Bojorquez is a 42-year-old female who presents to the emergency department due to right-sided facial pain and swelling. ED course: 4mg IV morphine sulfate, 4mg IV zofran, 4.5g IV Zosyn, 1g IV vancomycin, 1L NS bolus, 0.5mg dilaudid x2. -s/p Incision and Drainage Right Submandibular Abscess pod 1, romi in place. routine post op care -advance diet as tolerated -patient afebrile, WBC 18 this am, will continue to trend -CT neck -> 3.6 x 0.5cm abscess along right hemimandible w/regional soft tissue swelling and reactive lymphadenopathy. -bcx drawn and pending -zofran 4mg q6h prn nausea -Zosyn pending cx results -Tylenol 1g TID with oxy 5 mg for breakthrough pain Code status: FULL DVT Prophylaxis: SCDs in anticipation of abscess drainage Disposition: admit to med/surg F/E/N: NPO. No significant electrolyte abnormalities noted. LR @ 100mls/hr x2 bags. (2) Smoking greater than 25 pack years: - nicotine patch ordered -smoking cessation counselling (3) Epigastric pain: -40mg IV Protonix daily -caution w/further NSAID use Subjective Pt doing well recovering from surgery, in no acute distress. She denies ear pain, difficulty handling secretions, fever, nausea, difficulty breathing. no acute complaints, routine post op care. Physical Exam Vital Signs (Past 24 Hours): Last Vital Signs Temp 36.7 C 07/15/18 07:25 Pulse 71 07/15/18 07:25 Resp 18 07/15/18 07:25 BP 149/84 H 07/15/18 07:25 Pulse Ox 98 07/15/18 07:25 Constitutional: WD/WN, vitals as above not ill appearing Eyes: PERRL, conjunctivae normal, anicteric sclerae ENMT: Mouth: + dentition abnormality (swelling and erythema on inside of buccal membrane on right), + dental caries (diffuse) and + poor dentition; no muffled voice Respiratory: normal respiratory effort, lungs clear to auscultation Cardiovascular: RRR, no murmur, no edema Gastrointestinal (Abdomen): normal bowel sounds, soft, nontender, no hepatosplenomegaly Skin: no rashes, warm and dry Neurologic: moves all extremities and awake Psychiatric: A+Ox3, euthymic affect Eye Contact: good eye contact Results & Data Laboratory Results 07/15/18 07/15/18 Range/Units 05:54 05:54 WBC 18.13 H (4.8-10.8) K/uL RBC 4.08 L (4.2-5.4) M/uL Hgb 13.2 (12.0-16.0) g/dL Hct 39.3 (37-47) % MCV 96.3 (80-100) fL MCH 32.4 (25-34) pg MCHC 33.6 (32-36) g/dL RDW Std Deviation 51.2 H (36.4-46.3) fL RDW Coeff of [place] 14.4 (11.5-14.5) % Plt Count 238 (130-400) K/uL MPV 9.8 (7.4-10.4) fL Immature Gran % (Auto) 0.3 % Neut % (Auto) 83.1 % Lymph % (Auto) 8.7 % [place] % (Auto) 7.4 % Eos % (Auto) 0.4 % Baso % (Auto) 0.1 % Immature Gran # (Auto) 0.06 H (0.00-0.02) K/uL Neut # (Auto) 15.06 H (1.4-6.5) K/uL Lymph # (Auto) 1.57 (1.2-3.4) K/uL [place] # (Auto) 1.35 H (0.11-0.59) K/uL Eos # (Auto) 0.08 (0-0.5) K/uL Baso # (Auto) 0.01 (0-0.2) K/uL Sodium 141 (136-145) mmol/L Potassium 3.5 (3.5-5.1) mmol/L Chloride 108 H (98-107) mmol/L Carbon Dioxide 27 (21-32) mmol/L Anion Gap 6.0 (3-11) BUN 9 D (7-18) mg/dl Creatinine 0.54 L (0.6-1.2) mg/dl Est Cr Clr Drug Dosing 125.6 ml/min Est GFR ( Amer) 134.0 Est GFR (Non-Af Amer) 115.6 BUN/Creatinine Ratio 15.9 (10-20) Glucose 114 H (70-99) mg/dl Calcium 8.6 (8.5-10.1) mg/dl Medications Administered Current Inpatient Medications Acetaminophen (Tylenol) 1,000 mg PO TID [facility] Stop: 08/13/18 20:59 Last Admin: 07/14/18 20:12 Dose: 1,000 mg Documented by: Pantoprazole Sodium 40 mg/ (Syringe) 10 mls @ 5 mls/min IV DAILY@1100 [facility] Stop: 08/12/18 03:59 Last Admin: 07/14/18 10:37 Dose: 5 mls/min Documented by: Piperacillin Sod/Tazobactam (Sod 3.375 gm/ Dextrose) 115 mls @ 28.75 mls/hr IV Q8H [facility]; Protocol Stop: 07/23/18 05:59 Last Admin: 07/15/18 04:55 Dose: 28.8 mls/hr Documented by: Ioversol (Optiray 320 100ml) 100 ml IV ONCE PRN PRN Reason: Interaction Checking Stop: 07/17/18 01:49 Last Admin: 07/13/18 01:50 Dose: 92 ml Documented by: Miscellaneous Information (Consult) 1 ea N/A UD PRN PRN Reason: Consult Stop: 08/12/18 00:41 Nicotine (Nicoderm Cq) 14 mg TD QAM [facility] Stop: 08/12/18 08:59 Last Admin: 07/14/18 18:54 Dose: 14 mg Documented by: Ondansetron HCl (Zofran) 4 mg IV Q6H [facility] Stop: 08/12/18 03:43 Last Admin: 07/15/18 04:50 Dose: 4 mg Documented by: Oxycodone HCl (Roxicodone) 5 mg PO Q6 PRN PRN Reason: Pain Stop: 07/28/18 14:09 Last Admin: 07/15/18 04:57 Dose: 5 mg Documented by:
[2018-07-15] MEDS ORDERED: OXYCODONE HCL IR 5 MG TAB (IMMEDIATE RELEASE) PO PRN (09:29)
[2018-07-15] MEDS: ACETAMINOPHEN 500 MG TAB PO SCH (10:15)
[2018-07-15] MEDS: PANTOprazole 40 MG in SYRINGE 0 ML IV SCH (10:18)
--- NOTE | 2018-07-15 12:34 | Anesthesiology Progress Note ---
Date of Service July 15, 2018 Anesthesia Post Procedure Vital Signs Vital Signs: Temp Pulse Resp BP BP Pulse Ox 07/15/18 07:25 36.7 C 71 18 149/84 H 98 07/15/18 02:48 36.9 C 81 16 136/85 96 07/14/18 22:56 36.5 C 82 16 121/78 95 07/14/18 22:40 36.8 C 07/14/18 15:06 37 C 101 H 18 140/92 96 Pain Intensity Right Face: Pain Intensity: 8 Notes Mental Status: alert / awake / arousable and participated in evaluation Patient Amnestic to Procedure: Yes Nausea / Vomiting: adequately controlled Pain: adequately controlled Airway Patency, RR, SpO2: stable & adequate BP & HR: stable & adequate Hydration State: stable & adequate Anesthetic Complications: no major complications apparent and Pt Satisfied with anesthetic care
--- NOTE | 2018-07-15 13:20 | Progress Note ---
Date of Service July 15, 2018 Post op day # 1 Doing very well this AM Had some pain but now very well controlled Minimal drainage noted, swelling is almost gone, oral area looks great! Able to open her mouth much better now--much improved Overall excellent progress--from the acute infection Reviewed micobiology results Plan: Remove drain as minimal drainage noted over last few hours. 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 We will plan Augmentin and Pain meds Follow up on July 20 2018 Post op inst given: Diet, home care, oral care, massage and heat, follow up mu office mondayJuly 20 OK for D/C Suggest No work until Physical Exam Vital Signs (Past 24 Hours): Last Vital Signs Temp 36.7 C 07/15/18 07:25 Pulse 71 07/15/18 07:25 Resp 18 07/15/18 07:25 BP 149/84 H 07/15/18 07:25 Pulse Ox 98 07/15/18 07:25
--- NOTE | 2018-07-15 13:42 | Discharge Summary ---
Date of Service July 15, 2018 Admission HPI Per Admitting Provider Ms. Bojorquez is a 42-year-old female who presents to the emergency department due to right-sided facial pain and swelling. The patient states that she saw her dentist on June 05, due to having a broken tooth. The dentist put her on penicillin, and referred her to an oral surgeon for removal of the tooth. She states that she had trouble with her back, and had to see an orthopedic surgeon, and therefore put her dental issues on hold. She reports that on Monday, 5 days ago, she developed pain in the right side of her mouth. She saw her dentist again on Monday, who put her back on penicillin. On , yesterday, she noted that the right side of her face was swollen, she was in a tremendous amount of pain and was vomiting. She denies fever or chills. She states that she was using 4 tablets of ewfi-nak-fwkvqyi Advil every 4 hours for the pain, as well as "lots of Tylenol." She states that she has had no trouble breathing, but does have trouble opening her mouth, and has only been able to tolerate liquids over the last 24 hours. PMHx: Asthma, uses inhalers infrequently PSHx: Cold knife cone for abnormal Pap smears, 2 prior back surgeries, tonsillectomy Meds: No daily medications Social hx: She builds furniture for work. Smoker -> approximately 1 pack/day for the past 25 years. She states she consumes alcohol on weekends, and denies use of recreational drugs. Admission Exam Per Admitting Provider Constitutional: WD/WN, vitals as above Tearful, appears uncomfortable Eyes: PERRL, conjunctivae normal, anicteric sclerae ENMT: Mouth: + dentition abnormality (swelling and erythema on inside of buccal membrane on right) and + poor dentition Right sided facial swelling in perioral region. Warm and tender touch. Decreased jaw opening. Respiratory: normal respiratory effort, lungs clear to auscultation Cardiovascular: RRR, no murmur, no edema Gastrointestinal (Abdomen): Percussion/Palpation: + abdomen tender (tender in epigastric region) and abdomen soft; no guarding and abdomen not rigid Skin: no rashes, warm and dry Principal Diagnosis Dental Abscess Discharge Exam Constitutional WD/WN, vitals as above not ill appearing Eyes PERRL, conjunctivae normal, anicteric sclerae ENMT Mouth: + dentition abnormality (swelling and erythema on inside of buccal membrane on right), + dental caries (diffuse) and + poor dentition; no muffled voice Respiratory normal respiratory effort, lungs clear to auscultation Cardiovascular RRR, no murmur, no edema Gastrointestinal (Abdomen) normal bowel sounds, soft, nontender, no hepatosplenomegaly Skin no rashes, warm and dry Neurologic moves all extremities and awake Psychiatric A+Ox3, euthymic affect Eye Contact: good eye contact Discharge Data Allergies Allergy/AdvReac Type Severity Reaction Status Date / Time Sulfa (Sulfonamide Allergy Severe Swelling Verified 07/13/18 01:17 Antibiotics) of Lip/Tongue/Throat Procedures Performed Operation Date: 07/14/18 07:30 Actual Procedures p Incision and Drainage Right Submandibular Abscess, extraction of tooth #30(Right) - Ye Pompa, DMD Ordered Studies 07/13/18 00:38 CT soft tissue neck w con Stat Hospital Course (1) Facial abscess: Ms. Bojorquez is a 42-year-old female who presents to the emergency department due to right-sided facial pain and swelling. ED course: 4mg IV morphine sulfate, 4mg IV zofran, 4.5g IV Zosyn, 1g IV vancomycin, 1L NS bolus, 0.5mg dilaudid x2. She was admitted to the inpatient service and OMF was cx'd. The recommended I&D with romi placement, the patient was taken to the OR on 07/14. She recovered with out issue and the drain was removed prior to d/c Pt was discharged with 20 pills of 5 mg oxy and instructed to use for pain greater than >5, tylenol 1g tid round the clock, 10 days of augmentin 875 BID. (2) Smoking greater than 25 pack years: -nicotine patch provided -smoking cessation counselling (3) Epigastric pain: -40mg IV Protonix was given daily -cautioned with regard further NSAID use Total Time Total Time Spent Total Time Spent (In Minutes): 35 Discharge Plan Discharge Items Patient Disposition: Home - Self-Care Reason For Visit: DENTAL PAIN Discharge Diagnosis: Dental Abscess Discharge Goals: Therapeutic intervention Activity: Resume your previous activity Non-emergency contact: Primary Care Provider and Surgeon Call non-emergency contact if: your symptoms worsen, your pain is worsening, you have a fever, your temperature is above 101 and your wound has increased drainage Follow-up/Referrals: Ye Pompa, DMD [Surgeon] - (Please follow up per Dr. Pompa ) PCP,NO [Primary Care Provider] - Diet: Regular Addtl Provider Instructions: You were admitted to [facility] for treatment of Dental abscess. A discharge summary will be sent to your primary care physician to ensure continuity of care. Please bring this discharge summary with you to your next office appointment so that your provider can review it at that time. Follow-up appointments: - Keep all your follow-up appointments as already scheduled. If you cannot make an appointment, notify your provider. - We request you schedule a follow-up appointment with your primary care physician within one week of discharge. Please call their office to do so Medications: - Your medication list has been reviewed and reconciled upon discharge to ensure accuracy and continuity of care. - You are provided with a list of all your current medications at this time. Please review this list closely and make note of any changes. - Please take all of your medications exactly as prescribed. - Tell your primary care provider if you cannot afford your medications. - Call your primary care provider if you are having any side effects or any other problems. - Call your primary care provider before taking any over the counter medications or supplements, including herbals and vitamins, because some of these may interact with your current medications and/or make your symptoms worse. It has been our privilege to take care of you during your hospital stay. Symptoms: Please call your primary care provider for symptoms including, but not limited to: fevers (temperatures > 38.3 degrees C), chills, intractable nausea or vomiting, diarrhea, rash, shortness of breath, bleeding, pain, or if you experience any worsening of the symptoms that brought you to the hospital. For EMERGENCY and VERY SERIOUS health-related issues, such as chest pain, shortness of breath, or sudden onset of the symptoms that brought you to the hospital, you may need to call 911 or go directly to the Emergency Room Prescriptions: New oxycodone 5 mg Tablet 5 - 10 mg PO Q6H PRN (Reason: pain) 5 Days Qty: 20 RF: 0 amoxicillin-pot clavulanate 875-125 mg tablet 1 tab PO BID 10 Days Qty: 20 RF: 0 acetaminophen [Pain Reliever] 500 mg Tablet 1,000 mg PO TID Qty: 20 RF: 0 Discontinued penicillin V potassium 500 mg tablet 500 mg PO QID RF: 0 Visit Report Forms: Smoking Cessation Stand-Alone Forms: [facility], [facility], Work/School Release (Inpt) Discharge Orders: Discharge Order (Routine); Ordered 07/15/18 Ordered By: Efrain Williamson Admission Data Admit Date/Time: 07/13/18 03:02 Attending Provider: Tania Oakes Admit Provider: Hanna Pozo Primary Care Provider: PCP,LIAT Service: Telemetry Medical Other Interventions: Discharge Summary Assessment (RN) Last Done: 07/15/18 14:07 DC Date/Time DO NOT enter until pt leaves facility: 07/15/18 14:31 Supervising Physician Co-Signing Physician Notes Patient seen and examined with Dr. Williamson. Agree with history, physical exam findings, and hospital course as outlined. In brief, Ms Bojorquez is a 42 year old female admitted with pyogenic dental abscess and overlying facial cellulitis after failed outpatient PCN. Doing well today. Liquids are leaking out of the drain and has not had any drainage from the abscess. Drain removed at the bedside by Dr. Pompa. Swelling over the right cheek and mandible which is improved from yesterday. Poor dentition. Lessening erythema over the right cheek and lateral neck. Bandage over the mandible. 1. pyogenic dental abscess with overlying facial cellulitis s/p drainage in the OR. Continue with nany keller. NANY on Augmentin today. - pain control with Tylenol + oxycodone 5mg moderate pain, oxycodone 10mg severe pain. Work for note provided by resident. 2. tobacco use: nicotine patch. 35 minutes spent discharge planning. Resident Activity Tracking Resident Involvement: Resident Care Provided Care Provided: Adult Hospital Medicine
--- NOTE | 2018-07-15 14:08 | Operative Report ---
DATE OF OPERATION: 07/14/2018 PREOPERATIVE DIAGNOSES: Acute facial infection involving the submandibular, the floor of the mouth and the subperiosteal spaces on the right side of the face with a fractured and decaying tooth #30. POSTOPERATIVE DIAGNOSES: Acute facial infection involving the submandibular, the floor of the mouth and the subperiosteal spaces on the right side of the face with a fractured and decaying tooth #30. OPERATIONS: Noxycey-nax-gkjsdcl drainage of the submandibular, the floor of the mouth and the subperiosteal spaces with placement of [place] drain and surgical extraction of tooth #30. DESCRIPTION OF PROCEDURE: After this patient was cleared to undergo general anesthesia, she was brought down to the operating room and placed under general anesthesia via an orotracheal intubation. After adequate anesthesia was obtained, the patient was prepped and draped in the usual manner for an extraoral incision and drainage and extraction of tooth due to acute facial cellulitis. A timeout was taken to ensure that we had the proper patient, proper procedure, proper side and all equipment. This was verified, the operation now began. The facial area was now isolated with sterile towels and a sterile sheet was placed around the facial area. At this time, I was able to open the mouth up which was quite tight from the infection on the right side. I very carefully irrigated the oral cavity, placed an oropharyngeal throat pack, and at this time, noted that she was spontaneously draining pus from the floor of the mouth and around the infected tooth. I cultured this material for aerobes and anaerobes as well as Gram stain. At this time, I removed the tooth, upon removal of tooth a lot of pus extruded from the socket. I now used a periosteal elevator, was able to reflect the mucoperiosteal tissue off the alveolar bone to expose the subperiosteal space. There was another loculation of pus in this area that extended into the cheek. Once this was drained, I noted that we had more swelling in the floor of the mouth and in the submandibular area. Now making a small az[place] incision below the inferior border of the mandible with great care taken to avoid the neurovascular bundle, I was able to perforate through the skin. Now using blunt dissection, I was able to open up into the pocket of purulent material that was noted on the CT scan. At this time, a lot of pus drained from this incision site. I then used a curved hemostat and opened the hemostat few times to open up any loculations of bacterial pus in this region. I now pushed the hemostat up into the mouth and exited through the socket. At this time, a Evaristo drain was pulled through and exited on the face. I now turned the hemostat more medially and drained any infection material that was in the floor of the mouth. By doing so, I noted that we had a lot of purulent drainage coming through. I decided not to put a drain into the floor of the mouth as it was draining very nicely intraorally. At this time, the drain was sutured in place with the use of a 3-0 nylon suture. I now completed the operation. The oropharyngeal throat pack was placed. I passed an orogastric tube to ensure that we did not have any pus or purulent material in the GI tract. After the mouth was irrigated, the NG tube was removed and a gauze pressure dressing was applied to the facial area on the right side. At this time, we allowed the patient to recover. Once she was fully recovered, she was extubated and brought to the ICU which acted as the recovery room to ensure complete recovery. Once the patient was recovered, she was then transferred back to the third floor for followup care. My plan would be to maintain the patient in the hospital and evaluate her progress on Monday. If she is doing well, we will consider discharge and treating her with oral antibiotics, oral pain medication with follow up with my office. The operation was surgical drainage of multiple facial spaces and removal of tooth #30 and the culture and sensitivity. I attest to the content of the Intraoperative Record and any orders documented therein. Any exception s are noted below.
[2018-07-15 14:10] VITALS: BP 136/85
== END 2018-07-15 14:31 | disposition home or self-care (01) | DRG 138 ==
LOC: ED 00:19 → 3W 03:02 → SUATTDRO 03:02 → 3W 03:29

== ENCOUNTER 2024-07-24 10:49 | Inpatient (IN) ==
--- NOTE | 2024-07-24 11:02 | Emergency Department Note ---
Impression & Plan Lung mass ED Provider Note CHIEF COMPLAINT: Back injury HISTORY OF PRESENTING ILLNESS: The patient is a 48-year-old female who arrives to the emergency department for evaluation of right back pain. She reports pain is under the right posterior rib area. She states the pain has been persistent for the last 4 months. She states she also has cough, sputum production, and shortness of breath. She states 2 days ago the pain was present with breathing. She reports no chest pain, abdominal pain, nausea, vomiting, or fever. Patient is a smoker. REVIEW OF SYSTEMS: See HPI for pertinent positives and pertinent negatives. ALLERGIES: See below MEDICATIONS: See below PAST MEDICAL HISTORY: See below PHYSICAL EXAM: VITALS: Vitals are noted on the nurse's note and reviewed by myself. Vital signs stable. GENERAL: 48-year-old female, in no acute distress, nondiaphoretic, well- developed well-nourished. SKIN: The skin was without rashes, erythema, edema, or bruising. HEAD: Normocephalic atraumatic. HEART: Regular rate and rhythm without murmurs gallops or rubs. LUNGS: Coarse lung sounds right lower lobe, wheezing throughout. ABDOMEN: Positive bowel sounds x 4. Soft, nontender, without masses or organomegaly. Aguilar sign negative. No guarding or rebound tenderness. MUSCULOSKELETAL: No muscle atrophy, erythema, or edema noted. Full range of motion without joint tenderness in all extremities. No tenderness to palpation. Normal gait. Strength 5/5 throughout. NEURO: Patient was alert and oriented to person place and time. No focal neurological deficits. DIFFERENTIAL DIAGNOSIS: Cardiac ischemia, aortic dissection, pulmonary embolism, pneumothorax, pneumonia, pericarditis, myocarditis, esophageal rupture, GERD, cholecystitis, pancreatitis, musculoskeletal, as well as other pathologies. ED COURSE AND MEDICAL DECISION MAKING: HISTORY FROM INDEPENDENT HISTORIAN: at bedside as secondary historian. MEDICATIONS GIVEN: 1 L NSS bolus, 15 mg IV Toradol MONITOR: Continuous cardiac cath technician: Order was placed for continuous cardiac cath technician. Patient was placed on the cardiac cath technician and continuous pulse ox. Patient was noted to be in normal sinus rhythm at an initial rate of 114 bpm per my interpretation. EKG: EKG was interpreted by myself as normal sinus rhythm, with no ST elevation, depression, or ectopy at a rate of 82 bpm. Previous for comparison not available. INTERPRETATION OF LABS: I interpreted the labs with full lab results as below in the lab section of this note. Pertinent lab results discussed in the MDM section below. INTERPRETATION OF IMAGING: Imaging studies were interpreted by myself and read by radiology as per the imaging section of this note. CHRONIC MEDICAL/SOCIAL CONDITIONS AFFECTING CARE: Patient is a long-term smoker CONSULTATIONS: Vadim Mena PA-C from pulmonology consulted regarding CTA findings. MDM SUMMARY: The patient is a pleasant, 48-year-old female who arrives to the emergency department for evaluation of the above-stated complaint. A saline lock was established, CBC, CMP, troponin, lactate were obtained. CBC shows leukocytosis of 15.95, hemoglobin 16.4, hematocrit 49.8. CMP shows no concerning findings. Troponin 3.2, with repeat 2.8. CTA imaging of the chest was obtained to rule out pulmonary embolus, or other causes which shows no pulmonary emboli, however there are findings suggestive of primary lung malignancy. Numerous lower lobe predominant circumscribed pulmonary nodules are also present, worrisome for metastasis. There is also a 1.8 x 1.5 cm spiculated right upper lobe nodule which occludes segmental branch of the anterior segment of the right upper lobe. 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 Numerous groundglass nodular opacities throughout the lungs are present, as well as mildly enlarged mediastinal and bilateral hilar lymph nodes. Consultation was obtained from Vadim Mena PA-C from pulmonology who stated the patient may be evaluated routinely after admission. He did recommend MRI imaging of the brain to rule out metastatic disease. MRI imaging was obtained, which was unremarkable. I spoke with the patient regarding the findings at bedside, she was tearful, but remained calm. The patient was admitted to the [facility] hospitalist group, Dr. Naranjo. He agreed to accept the patient under his care for admission with pulmonary consultation. Please refer to his documentation, as well as pulmonology's documentation for further patient workup and care. DIAGNOSIS: Lung mass The chart was completed utilizing [employer] voice recognition software. Grammatical errors, random word insertions, pronoun errors, and incomplete sentences are an occasional consequence of this system due to software limitations, ambient noise, and hardware issues. Any formal questions or concerns about the content, text, or information contained within the body of this dictation should be directly addressed to the provider for clarification. Past Med/Surg History Problem List (Updated 08/01/24 @ 17:05 by MARISA Estevez) Massive hemoptysis Multiple pulmonary nodules determined by computed tomography of lung Lung mass (Acute) Presence of subdermal contraceptive implant Nexplanon 08/2021 H/O cone biopsy of cervix x2, second one at [place] for + margins Pap 12/29 neg/HPV18+ --> colpo neg at [facility] Pap 2015 ASCUS - H, HPV + non 16/18, Cellulitis of face (Acute) Epigastric pain Smoking greater than 25 pack years Facial abscess (Acute) Medical History Anxiety Asthma Surgical History History of tonsillectomy Previous back surgery Family History Grandfather (Maternal) Heart disease Denies family history of Ovarian cancer Prostate cancer Diabetes Breast cancer Colorectal cancer Hypertension Social History Smoking Status: Current every day smoker Tobacco Type: Cigarettes Cigarettes Per Day: 20; Second Hand Exposure: Yes; Do You Dip or Chew Tobacco: No; Hx Alcohol Use: Yes Alcohol type: beer Hx Substance Use: No Preferred Language: Macanese Communication Ability: Effective Hospitality Team Member Required: No Beliefs That Will Affect Care: None Current Living Situation: Other current occupational status: employed current occupation: [employer] How many Children do You have: 1 Feels Safe at Home: Yes Assistive Devices: None Allergies Allergies Allergy/AdvReac Type Severity Reaction Status Date / Time Sulfa (Sulfonamide Allergy Severe Swelling Verified 09/30/21 12:22 Antibiotics) of Lip/Tongue/Throat Home Meds Home Medications Medication Instructions Recorded Confirmed etonogestrel 68 mg subdermal 1 implant subdermal DIRECTED 08/17/21 07/24/24 implant (Nexplanon) albuterol sulfate 90 mcg/actuation 1 inh inhalation QID PRN sob 08/30/21 07/24/24 aerosol inhaler acetaminophen 500 mg tablet (Pain 1,000 mg PO TID PRN Pain 07/24/24 07/24/24 Reliever (acetaminophen)) Previous Rx's Medication Instructions Recorded prednisone 20 mg tablet See Rx Instructions .Route 07/27/24 .COMPLEX #9 tabs Results & Data (ED) Vital Signs Vital Signs - 24 hr 07/24/24 10:52 Temperature 36.7 C Temperature Source Temporal Artery Scan Pulse Rate 114 H Respiratory Rate 18 Respiratory Effort / Characteristics Non-Labored Spontaneous Respiratory Depth Normal Blood Pressure 154/104 H Blood Pressure Mean 120 Blood Pressure Position Sitting Pulse Oximetry 94 Oxygen Delivery Method Room Air Sepsis Recent Fever Within 48 Hours No Sepsis New/Unexplained Change in Mental Status No Sepsis Action Taken by Nursing No Action Required Home Medications Current Medication List: was personally reviewed by me Laboratory Data Attestation: I reviewed the patient's lab results. 07/27/24 04:10 07/27/24 04:10 Lab Results 07/24/24 Range/Units 11:15 WBC 15.95 H (4.8-10.8) K/ul RBC 5.21 (4.20-5.40) M/uL Hgb 16.4 H (12.0-16.0) g/dl Hct 49.8 H (37.0-47.0) % MCV 95.6 (80.0-100.0) fL MCH 31.5 (25.0-34.0) pg MCHC 32.9 (32.0-36.0) g/dL RDW Std Deviation 55.4 H (36.4-46.3) fL RDW Coeff of Mariana 15.6 H (11.5-14.5) % Plt Count 366 (130-400) K/uL MPV 9.7 (9.4-12.4) fL Immature Gran % (Auto) 0.3 % Neut % (Auto) 69.4 % Lymph % (Auto) 19.9 % Larue % (Auto) 7.7 % Eos % (Auto) 2.2 % Baso % (Auto) 0.5 % Neut # (Auto) 11.06 H (1.40-6.50) K/uL Lymph # (Auto) 3.18 (1.20-3.40) K/uL Larue # (Auto) 1.23 H (0.11-0.59) K/uL Eos # (Auto) 0.35 (0.00-0.50) K/uL Baso # (Auto) 0.08 (0.00-0.20) K/uL Immature Gran # (Auto) 0.05 (0.01-0.20) K/uL Sodium 139 (136-145) mmol/L Potassium 4.0 (3.5-5.1) mmol/L Chloride 106 (98-107) mmol/L Carbon Dioxide 27 (21-32) mmol/L Anion Gap 6 (3-11) BUN 5 L (6-23) mg/dl Creatinine 0.50 L (0.6-1.2) mg/dl Est Cr Clr Drug Dosing 105.1 ml/min eGFR 114.90 BUN/Creatinine Ratio 10.0 (10-20) Glucose 97 (70-99(Fasting)) mg/dl Calcium 9.5 (8.6-10.3) mg/dl Total Bilirubin 0.7 (0.2-1.0) mg/dl AST 19 (13-39) U/L ALT 12 (7-52) U/L Alkaline Phosphatase 67 (34-104) U/L Lactate Dehydrogenase 318 H (86-244) U/L Troponin I High Sens 3.2 (0-14) pg/ml Total Protein 7.3 (6.0-8.3) gm/dl Albumin 4.4 (3.4-5.0) gm/dl Globulin 2.9 (2.5-4.0) gm/dl Albumin/Globulin Ratio 1.5 (0.9-2) Administered Medications Discontinued Medications Acetaminophen (Acetaminophen 325 Mg Tab) 650 mg PO Q4H PRN PRN Reason: pain/fever Stop: 08/23/24 13:26 Last Admin: 07/25/24 03:19 Dose: 650 mg Documented By: DANE Albuterol (Albuterol 0.083% Nebu Soln 3 Ml Vial) 2.5 mg NEB Q6R [facility]; Protocol Stop: 08/24/24 20:44 Last Admin: 07/26/24 14:26 Dose: 2.5 mg Documented By: [id number] Admin: 07/26/24 08:07 Dose: 2.5 mg Documented By: [id number] Admin: 07/26/24 02:22 Dose: 2.5 mg Documented By: LGChano Admin: 07/25/24 20:58 Dose: Not Given Documented By: TP Albuterol (Albuterol 0.083% Nebu Soln 3 Ml Vial) 2.5 mg NEB Q6R PRN; Protocol PRN Reason: Shortness Of Breath Or Wheezin Stop: 08/24/24 20:44 Last Admin: 07/26/24 19:58 Dose: 2.5 mg Documented By: BIENVENIDO Budesonide (Budesonide 0.5 Mg/2 Ml Vial (Pulmicort)) 0.5 mg NEB NOW STA Stop: 07/25/24 19:52 Last Admin: 07/25/24 21:11 Dose: 0.5 mg Documented By: BIENVENIDO Budesonide (Budesonide 0.5 Mg/2 Ml Vial (Pulmicort)) 0.5 mg NEB BIDR ANA Stop: 08/25/24 18:59 Last Admin: 07/27/24 08:03 Dose: 0.5 mg Documented By: [id number] Admin: 07/26/24 19:58 Dose: 0.5 mg Documented By: BIENVENIDO Enoxaparin Sodium (Enoxaparin Inj 40 Mg/0.4 Ml Syr) 40 mg SQ Q24H [facility] Stop: 08/23/24 15:59 Last Admin: 07/24/24 17:03 Dose: Not Given Documented By: GHASSAN Fentanyl Citrate (Fentanyl Bolus From Bag) 50 mcg IV Q60M PRN PRN Reason: Pain or Agitation Stop: 08/08/24 15:07 Last Admin: 07/25/24 15:46 Dose: 50 mcg Documented By: MARK Co-signed By: DILLON Admin: 07/25/24 15:26 Dose: 50 mcg Documented By: MARK Co-signed By: DILLON Gadobutrol (Gadobutrol 65ml Vial) 5 ml IV ONCE ONE Stop: 07/24/24 15:11 Last Admin: 07/24/24 16:10 Dose: Not Given Documented By: GHASSAN Guaifenesin/Codeine Phosphate (Guaifenesin/Codeine 100mg/10mg 5ml Udc) 5 ml PO Q6H ANA Stop: 08/24/24 19:29 Last Admin: 07/27/24 07:41 Dose: 5 ml Documented By: Admin: 07/27/24 01:00 Dose: 5 ml Documented By: Admin: 07/26/24 20:39 Dose: 5 ml Documented By: Admin: 07/26/24 13:33 Dose: 5 ml Documented By: Admin: 07/26/24 08:32 Dose: 5 ml Documented By: Admin: 07/26/24 01:26 Dose: 5 ml Documented By: Admin: 07/25/24 20:57 Dose: 5 ml Documented By: TP Sodium Chloride (Nss) 1,000 mls @ 999 mls/hr IV .Q1H1M ONE Stop: 07/24/24 12:02 Last Infusion: 07/24/24 12:19 Dose: Infused Documented By: Admin: 07/24/24 11:12 Dose: 999 mls/hr Documented By: QGV Lactated Ringer's (Lr) 1,000 mls @ 15 mls/hr IV .Q24H ANA Stop: 07/26/24 13:14 Last Admin: 07/25/24 17:12 Dose: Not Given Documented By: Infusion: 07/25/24 15:00 Dose: Infused Documented By: Admin: 07/25/24 13:05 Dose: 15 mls/hr Documented By: TDM Propofol (Diprivan) 1,000 mg in 100 mls @ 12.984 mls/hr IV .Q7H43M ANA; Protocol Stop: 07/28/24 15:14 Last Admin: 07/26/24 05:52 Dose: Not Given Documented By: Admin: 07/25/24 20:58 Dose: Not Given Documented By: Titration: 07/25/24 16:30 Dose: Infused Documented By: KJEvan Titration: 07/25/24 15:47 Dose: 40 mcg/kg/min, 13 mls/hr Documented By: Admin: 07/25/24 15:22 Dose: 20 mcg/kg/min, 6.5 mls/hr Documented By: FELISAL Co-signed By: DILLON Fentanyl Citrate (Fentanyl Citrate) 2,500 mcg in 250 mls @ 12.5 mls/hr IV .Q20H ANA; Protocol Stop: 08/08/24 15:14 Last Admin: 07/26/24 08:33 Dose: Not Given Documented By: Titration: 07/25/24 16:31 Dose: Infused Documented By: MARK Co-signed By: CHUCK Titration: 07/25/24 15:46 Dose: 125 mcg/hr, 12.5 mls/hr Documented By: MARK Co-signed By: DILLON Admin: 07/25/24 15:22 Dose: 25 mcg/hr, 2.5 mls/hr Documented By: MARK Co-signed By: DILLON Cisatracurium Besylate 40 mg/ (Dextrose) 100 mls @ 0 mls/hr IV .Q0M ANA; Protocol Stop: 08/24/24 15:14 Last Titration: 07/25/24 16:31 Dose: Infused Documented By: Titration: 07/25/24 16:25 Dose: 0 mcg/kg/min, 0 mls/hr Documented By: Admin: 07/25/24 15:27 Dose: 1 mcg/kg/min, 8.2 mls/hr Documented By: MARK Co-signed By: JEAN PAUL Methylprednisolone 60 mg/ (Syringe) 0.96 mls @ 1.5 mls/min IV NOW STA Stop: 07/25/24 19:55 Last Admin: 07/25/24 20:57 Dose: 1.5 mls/min Documented By: PAPO Ioversol (Optiray 320 125ml) 112 ml IV ONCE ONE Stop: 07/24/24 12:08 Last Admin: 07/24/24 12:07 Dose: 112 ml Documented By: MARTY Ioversol (Optiray 320 125ml) 119 ml IV ONCE ONE Stop: 07/25/24 19:45 Last Admin: 07/25/24 19:44 Dose: 119 ml Documented By: ARJUN Ketorolac Tromethamine (Ketorolac Tromethamine 15 Mg/Ml Vial) 15 mg IV NOW ONE Stop: 07/24/24 11:03 Last Admin: 07/24/24 11:12 Dose: 15 mg Documented By: QGV Lorazepam (Lorazepam 2 Mg/1 Ml Vial) 0.5 mg IV NOW STA Stop: 07/24/24 13:40 Last Admin: 07/24/24 14:34 Dose: 0.5 mg Documented By: QGV Lorazepam (Lorazepam 2 Mg/1 Ml Vial) 0.5 mg IV Q8H PRN PRN Reason: Anxiety/Agitation Stop: 08/25/24 17:21 Last Admin: 07/27/24 00:59 Dose: 0.5 mg Documented By: Admin: 07/26/24 17:34 Dose: 0.5 mg Documented By: ELTON Methylprednisolone (Methylprednisolone 125 Mg/2 Ml Vial) 60 mg IV NOW STA Stop: 07/26/24 13:14 Last Admin: 07/26/24 13:33 Dose: 60 mg Documented By: ELTON Miscellaneous (Remove Nicoderm Patch) 1 each N/A DAILY@0859 [facility] Stop: 08/24/24 08:58 Last Admin: 07/27/24 07:41 Dose: 1 each Documented By: Admin: 07/26/24 08:32 Dose: 1 each Documented By: Admin: 07/25/24 09:10 Dose: 1 each Documented By: KATELIN Multi-Ingredient Cream (Artificial Tears Op Oint 3.5 Gm Tube) 1 appln OP Q4H [facility] Stop: 08/24/24 15:14 Last Admin: 07/26/24 08:32 Dose: 1 appln Documented By: Admin: 07/26/24 05:52 Dose: Not Given Documented By: Admin: 07/26/24 00:34 Dose: Not Given Documented By: Admin: 07/25/24 20:58 Dose: Not Given Documented By: Admin: 07/25/24 15:53 Dose: 1 appln Documented By: MARK Nicotine (Nicotine 21 Mg/24 Hr Tdsy) 1 patch TD QAM [facility] Stop: 08/23/24 13:44 Last Admin: 07/27/24 07:41 Dose: 1 patch Documented By: Admin: 07/26/24 08:32 Dose: 1 patch Documented By: Admin: 07/25/24 09:09 Dose: 1 patch Documented By: Admin: 07/24/24 17:11 Dose: 1 patch Documented By: GHASSAN Propofol (Propofol Bolus From Bag) 20 mg IV Q5M PRN PRN Reason: Sedation Stop: 07/28/24 15:07 Last Admin: 07/25/24 15:46 Dose: 20 mg Documented By: MARK Co-signed By: DILLON Propofol (Propofol Iv Emulsion 10 Mg/Ml 100 Ml Vial) Confirm Administered Dose 1,000 mg IV .STK-MED ONE Stop: 07/25/24 15:17 Last Admin: 07/25/24 17:11 Dose: Not Given Documented By: MARK Tranexamic Acid (Txa 10% Non-Iv Routes 100 Mg/Ml Vial) 500 mg NEB ONE ONE Stop: 07/25/24 15:39 Last Admin: 07/25/24 17:11 Dose: 500 mg Documented By: KJL Tranexamic Acid (Txa 10% Non-Iv Routes 100 Mg/Ml Vial) Confirm Administered Dose 1,000 mg .ROUTE .STK-MED ONE Stop: 07/25/24 15:43 Last Admin: 07/25/24 15:58 Dose: Not Given Documented By: KLS Tranexamic Acid (Txa 10% Non-Iv Routes 100 Mg/Ml Vial) 250 mg NEB ONE ONE Stop: 07/25/24 23:01 Last Admin: 07/25/24 23:09 Dose: 250 mg Documented By: TP Tranexamic Acid (Txa 10% Non-Iv Routes 100 Mg/Ml Vial) Confirm Administered Dose 1,000 mg .ROUTE .STK-MED ONE Stop: 07/26/24 09:37 Last Admin: 07/26/24 09:42 Dose: 1,000 mg Documented By: [id number] Tranexamic Acid (Txa 10% Non-Iv Routes 100 Mg/Ml Vial) 500 mg NEB ONE ONE Stop: 07/26/24 14:26 Last Admin: 07/26/24 14:58 Dose: Not Given Documented By: ES Imaging Data Attestation: I personally reviewed and interpreted this imaging study as follows: Discharge Plan Visit Data Chief Complaint: Back Injury/Pain Stated Complaint: LUNG/BACK PAIN, HURTS TO BREATH ED Provider: Jaswant Srinivasan ED Midlevel Provider: Tanja Stallings Discharge Problem: Lung mass Patient Disposition: Admitted As Inpatient Discharge Instructions Interventions: ED Discharge Assessment Last Done: 07/24/24 15:29
[2024-07-24] MEDS: SODIUM CHLORIDE 0.9% 1,000 ML IV ONE (11:12)
[2024-07-24] MEDS: KETOROLAC TROMETHAMINE 15 MG/ML VIAL IV ONE (11:12)
[2024-07-24 11:36] LABS: Basophils # (auto) 0.08 K/uL (0.00-0.20); Basophils % (auto) 0.5 %; Eosinophils # (auto) 0.35 K/uL (0.00-0.50); Eosinophils % (auto) 2.2 %; Hematocrit (blood only) 49.8 % (37.0-47.0); Hemoglobin 16.4 g/dl (12.0-16.0); Immature Granulocytes # (auto) 0.05 K/uL (0.01-0.20); Immature Granulocytes % (auto) 0.3 %; Lymphocytes # (auto) 3.18 K/uL (1.20-3.40); Lymphocytes % (auto) 19.9 %; Mean Corpuscular Hemoglobin 31.5 pg (25.0-34.0); Mean Corpuscular Hgb Conc 32.9 g/dL (32.0-36.0); Mean Corpuscular Volume 95.6 fL (80.0-100.0); Mean Platelet Volume 9.7 fL (9.4-12.4); Monocytes # (auto) 1.23 K/uL (0.11-0.59); Monocytes % (auto) 7.7 %; Neutrophils # (auto) 11.06 K/uL (1.40-6.50); Neutrophils % (auto) 69.4 %; Platelet Count 366 K/uL (130-400); RDW Coefficient of Variation 15.6 % (11.5-14.5); RDW Standard Deviation 55.4 fL (36.4-46.3); Red Blood Count 5.21 M/uL (4.20-5.40); White Blood Count 15.95 K/ul (4.8-10.8)
[2024-07-24 11:46] LABS: Albumin Globulin Ratio 1.5 (0.9-2); Albumin Level 4.4 gm/dl (3.4-5.0); Bilirubin,Total 0.7 mg/dl (0.2-1.0); Calcium 9.5 mg/dl (8.6-10.3); Creatinine Clr Calc Pharmacy 105.1 ml/min; Globulin 2.9 gm/dl (2.5-4.0); Total Protein 7.3 gm/dl (6.0-8.3)
[2024-07-24 11:53] LABS: Troponin I High Sensitivity 3.2 pg/ml (0-14)
[2024-07-24] MEDS: OPTIRAY 320 125ml IV ONE (12:07)
--- NOTE | 2024-07-24 12:43 | CT Scan Report ---
CT ANGIOGRAPHY OF THE CHEST, PULMONARY EMBOLUS PROTOCOL CLINICAL HISTORY: Shortness of breath. Pain with inspiration. Evaluate for pulmonary embolus. COMPARISON STUDY: Chest radiograph October 17, 2019. TECHNIQUE: Following IV administration of 112 mL of Optiray, helical axial images of the chest were o btained utilizing the pulmonary embolus protocol. Maximal intensity projections and sagittal and cor onal reformats were viewed on an independent 3D workstation. IV contrast was administered without co mplication. Automated exposure control was utilized for the study. A dose lowering technique was ut ilized adhering to the principles of ALARA. CT DOSE: 358.88 mGy.cm FINDINGS: No pulmonary emboli are identified. Mildly enlarged bilateral hilar lymph nodes are presen t. An enlarged subcarinal lymph node measures approximately 2.9 x 1.6 cm. The size of the heart is no rmal. There is no pericardial effusion. There is no thoracic aortic dissection. Upper lobe predominan t emphysema is noted. There is a spiculated 4.5 x 3.8 cm subpleural left lower lobe mass. Note is als o made of a 1.8 x 1.5 cm spiculated right upper lobe nodule on image 154 of 271. This results in occl usion of the segmental branch to the anterior segment of the right upper lobe. However, there is no p ostobstructive pneumonia. Diffuse bronchial wall thickening is present. Numerous lower lobe prominent circumscribed nodules are present. The largest is an 8 mm right lower lobe nodule on image 66. There are also numerous groundglass nodules throughout the lungs. Index left upper lobe nodule on image 21 9 measures 1.9 cm. Index right upper lobe nodule on image 188 measures 1.4 cm. There is no pleural ef fusion. No pneumothorax is present. Visualized portions of the upper abdomen are unremarkable. No fra ctures or suspicious lesions within the bony thorax are identified. IMPRESSION: 1. No pulmonary emboli identified. 2. 4.5 x 3.8 cm spiculated left lower lobe mass. This is suggestive of a primary lung malignancy. Pul monary consultation is recommended. 3. Numerous lower lobe predominant circumscribed pulmonary nodules. These are indeterminate but worri some for metastases. 4. 1.8 x 1.5 cm spiculated right upper lobe nodule which occludes a segmental branch to the anterior segment of the right upper lobe. 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 5. Numerous groundglass nodular opacities throughout the lungs. These favor synchronous lesions altho ugh a superimposed infectious process could appear similar. No consolidation to suggest pneumonia. 6. Mildly enlarged mediastinal and bilateral hilar lymph nodes. Brady involvement cannot be excluded. ACT 112: Positive. There are findings on this exam that require communication between the performing entity and the patient following Patient Test Result Information Act ([place] Act 112) guidelines. Electronically signed by: Kenny Quintero M.D. 07/24/2024 12:42 PM
--- NOTE | 2024-07-24 13:39 | History & Physical Report ---
Date of Service July 24, 2024 Assessment & Plan (1) Anxiety: (2) Asthma: (3) Lung mass: Plan The patient is a 48-year-old female who presented to the ED on 07/24/2024 with complaints of shortness of breath and back pain, found to have new bilateral lung masses New bilateral lung masses: Suspected lung CA: After discussion with pulmonology, head MRI ordered to rule out brain mets Check CT A/P to rule out abdominal mets, check LDH Leukocytosis likely secondary to underlying neoplastic process Patient will likely need biopsy and further workup Consult pulmonology, consider heme-onc consult Hx asthma: Not in acute exacerbation, albuterol inhaler as needed Full code Prophylaxis History of Present Illness Chief Complaint: Back pain, shortness of breath Primary Care Provider: Joshua Sunshine PA-C The patient is a 48-year-old female with a past medical history of anxiety, lyme's disease 2022, recent sinus infection, lifelong smoker who presents to the ED on 07/24/2024 with complaints of worsening shortness of breath and back pain. Patient reports about 2 days ago she developed an upper right back pain when taking a deep breath. She reports that the pain had been so bad she was unable to sleep at night. She trialed Tylenol and Motrin without any relief. She also reported some associated shortness of breath and intermittent wheezing. She reports about 4 months ago she developed green sputum that she attributed to a possible sinus infection. She had taken antibiotics for this without much improvement. She denies any fever/chills/sinus congestion. Denies any recent respiratory illness. Does report some chest congestion and intermittent chest tightness. Reports using her albuterol inhaler intermittently. On arrival to the ED, labs remarkable for WBC 15.9, hemoglobin 16.4, creatinine 0.50 Troponin unremarkable, EKG unremarkable Chest CTA showed: 1. No pulmonary emboli identified. 2. 4.5 x 3.8 cm spiculated left lower lobe mass. This is suggestive of a primary lung malignancy. Pulmonary consultation is recommended. 3. Numerous lower lobe predominant circumscribed pulmonary nodules. These are indeterminate but worrisome for metastases. 4. 1.8 x 1.5 cm spiculated right upper lobe nodule which occludes a segmental branch to the anterior segment of the right upper lobe. 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 5. Numerous groundglass nodular opacities throughout the lungs. These favor synchronous lesions although a superimposed infectious process could appear similar. No consolidation to suggest pneumonia. 6. Mildly enlarged mediastinal and bilateral hilar lymph nodes. Brady involvement cannot be excluded. Allergies Allergy/AdvReac Type Severity Reaction Status Date / Time Sulfa (Sulfonamide Allergy Severe Swelling Verified 09/30/21 12:22 Antibiotics) of Lip/Tongue/Throat Home Medications Medication Instructions Recorded Confirmed Type etonogestrel 68 mg subdermal 1 implant subdermal DIRECTED 08/17/21 07/24/24 History implant (Nexplanon) albuterol sulfate 90 mcg/actuation 1 inh inhalation QID PRN sob 08/30/21 5 History aerosol inhaler acetaminophen 500 mg tablet (Pain 1,000 mg PO TID PRN Pain 07/24/24 07/24/24 History Reliever (acetaminophen)) Past Med/Surg History Problem List (Updated 07/24/24 @ 13:34 by MARISA Miguel) Lung mass Presence of subdermal contraceptive implant Nexplanon 08/2021 H/O cone biopsy of cervix x2, second one at [facility] for + margins Pap 8/17 neg/HPV18+ --> colpo neg at [facility] Pap 2015 ASCUS - H, HPV + non 16/18, Cellulitis of face (Acute) Epigastric pain Smoking greater than 25 pack years Facial abscess (Acute) Medical History Anxiety Asthma Presence of subdermal contraceptive implant Surgical History H/O cone biopsy of cervix History of tonsillectomy Previous back surgery Family History Grandfather (Maternal) Heart disease Denies family history of Ovarian cancer Prostate cancer Diabetes Breast cancer Colorectal cancer Hypertension Social History (Updated 08/17/21 @ 15:27 by Chata Phelps MD) Smoking Status: Current every day smoker Tobacco Type: Cigarettes Cigarettes Per Day: 20; Second Hand Exposure: Yes; Do You Dip or Chew Tobacco: No; Tobacco Cessation Education Requested by Patient: No Hx Alcohol Use: Yes Alcohol type: beer Hx Substance Use: No Preferred Language: Honduran Communication Ability: Effective General Duty Nurse Required: No Beliefs That Will Affect Care: None Current Living Situation: Other current occupational status: employed current occupation: [employer] How many Children do You have: 1 Other Information That Helps Us Care for You: No Feels Safe at Home: Yes Safety Concerns: Feels Safe At This Time Assistive Devices: Denture - Lower and Glasses Assistive Devices Comment: partial lower denture Review of Systems Review of Systems: All systems reviewed & are unremarkable except as noted in HPI & below Physical Exam Constitutional: WD/WN, vitals as above + ill appearing and + thin Eyes: PERRL, conjunctivae normal, anicteric sclerae ENMT: external ear and nose normal, oropharynx normal Neck: trachea midline, no thyromegaly Respiratory: normal respiratory effort, lungs clear to auscultation no labored breathing Auscultation: + rales and + rhonchi Cardiovascular: RRR, no murmur, no edema Gastrointestinal (Abdomen): normal bowel sounds, soft, nontender, no hepatosplenomegaly Musculoskeletal: no cyanosis or clubbing, extremities motor strength 5/5 Skin: no rashes, warm and dry Neurologic: PERRL, EOMI, accommodation nl, no face palsy, no dysarthria Psychiatric: A+Ox3, euthymic affect Lymphatic: no cervical or axillary lymphadenopathy Results & Data Results & Data Vital Signs (Past 12 Hours) Vital Signs Temp Pulse Pulse Resp BP BP Pulse Ox 07/24/24 13:00 77 20 138/99 99 07/24/24 11:40 102 H 07/24/24 11:23 86 20 137/98 96 07/24/24 11:19 80 20 96 07/24/24 10:52 36.7 C 114 H 18 154/104 H 94 O2 Del Method 07/24/24 13:00 Room Air 07/24/24 11:40 07/24/24 11:23 Room Air 07/24/24 11:19 Room Air 07/24/24 10:52 Room Air Diagnostic Findings Laboratory Results WBC 15.95 K/ul (4.8-10.8) H 07/24/24 11:15 RBC 5.21 M/uL (4.20-5.40) 07/24/24 11:15 Hgb 16.4 g/dl (12.0-16.0) H 07/24/24 11:15 Hct 49.8 % (37.0-47.0) H 07/24/24 11:15 MCV 95.6 fL (80.0-100.0) 07/24/24 11:15 MCH 31.5 pg (25.0-34.0) 07/24/24 11:15 MCHC 32.9 g/dL (32.0-36.0) 07/24/24 11:15 RDW Std Deviation 55.4 fL (36.4-46.3) H 07/24/24 11:15 RDW Coeff of [place] 15.6 % (11.5-14.5) H 07/24/24 11:15 Plt Count 366 K/uL (130-400) 07/24/24 11:15 MPV 9.7 fL (9.4-12.4) 07/24/24 11:15 Immature Gran % (Auto) 0.3 % 07/24/24 11:15 Neut % (Auto) 69.4 % 07/24/24 11:15 Lymph % (Auto) 19.9 % 07/24/24 11:15 [place] % (Auto) 7.7 % 07/24/24 11:15 Eos % (Auto) 2.2 % 07/24/24 11:15 Baso % (Auto) 0.5 % 07/24/24 11:15 Neut # (Auto) 11.06 K/uL (1.40-6.50) H 07/24/24 11:15 Lymph # (Auto) 3.18 K/uL (1.20-3.40) 07/24/24 11:15 [place] # (Auto) 1.23 K/uL (0.11-0.59) H 07/24/24 11:15 Eos # (Auto) 0.35 K/uL (0.00-0.50) 07/24/24 11:15 Baso # (Auto) 0.08 K/uL (0.00-0.20) 07/24/24 11:15 Immature Gran # (Auto) 0.05 K/uL (0.01-0.20) 07/24/24 11:15 Sodium 139 mmol/L (136-145) 07/24/24 11:15 Potassium 4.0 mmol/L (3.5-5.1) 07/24/24 11:15 Chloride 106 mmol/L (98-107) 07/24/24 11:15 Carbon Dioxide 27 mmol/L (21-32) 07/24/24 11:15 Anion Gap 6 (3-11) 07/24/24 11:15 BUN 5 mg/dl (6-23) L 07/24/24 11:15 Creatinine 0.50 mg/dl (0.6-1.2) L 07/24/24 11:15 Est Cr Clr Drug Dosing 105.1 ml/min 07/24/24 11:15 eGFR 114.90 07/24/24 11:15 BUN/Creatinine Ratio 10.0 (10-20) 07/24/24 11:15 Glucose 97 mg/dl (70-99(Fasting)) 07/24/24 11:15 Calcium 9.5 mg/dl (8.6-10.3) 07/24/24 11:15 Total Bilirubin 0.7 mg/dl (0.2-1.0) 07/24/24 11:15 AST 19 U/L (13-39) 07/24/24 11:15 ALT 12 U/L (7-52) 07/24/24 11:15 Alkaline Phosphatase 67 U/L (34-104) 07/24/24 11:15 Troponin I High Sens 3.2 pg/ml (0-14) 07/24/24 11:15 Total Protein 7.3 gm/dl (6.0-8.3) 07/24/24 11:15 Albumin 4.4 gm/dl (3.4-5.0) 07/24/24 11:15 Globulin 2.9 gm/dl (2.5-4.0) 07/24/24 11:15 Albumin/Globulin Ratio 1.5 (0.9-2) 07/24/24 11:15 Impressions Chest CTA 07/24/24 11:02 CT ANGIOGRAPHY OF THE CHEST, PULMONARY EMBOLUS PROTOCOL CLINICAL HISTORY: Shortness of breath. Pain with inspiration. Evaluate for pulmonary embolus. COMPARISON STUDY: Chest radiograph October 17, 2019. TECHNIQUE: Following IV administration of 112 mL of Optiray, helical axial images of the chest were obtained utilizing the pulmonary embolus protocol. Maximal intensity projections and sagittal and coronal reformats were viewed on an independent 3D workstation. IV contrast was administered without complication. Automated exposure control was utilized for the study. A dose lowering technique was utilized adhering to the principles of ALARA. CT DOSE: 358.88 mGy.cm FINDINGS: No pulmonary emboli are identified. Mildly enlarged bilateral hilar lymph nodes are present. An enlarged subcarinal lymph node measures approximately 2.9 x 1.6 cm. The size of the heart is normal. There is no pericardial effusion. There is no thoracic aortic dissection. Upper lobe predominant emphysema is noted. There is a spiculated 4.5 x 3.8 cm subpleural left lower lobe mass. Note is also made of a 1.8 x 1.5 cm spiculated right upper lobe nodule on image 154 of 271. This results in occlusion of the segmental branch to the anterior segment of the right upper lobe. However, there is no postobstructive pneumonia. Diffuse bronchial wall thickening is present. Numerous lower lobe prominent circumscribed nodules are present. The largest is an 8 mm right lower lobe nodule on image 66. There are also numerous groundglass nodules throughout the lungs. Index left upper lobe nodule on image 219 measures 1.9 cm. Index right upper lobe nodule on image 188 measures 1.4 cm. There is no pleural effusion. No pneumothorax is present. Visualized portions of the upper abdomen are unremarkable. No fractures or suspicious lesions within the bony thorax are identified. IMPRESSION: 1. No pulmonary emboli identified. 2. 4.5 x 3.8 cm spiculated left lower lobe mass. This is suggestive of a primary lung malignancy. Pulmonary consultation is recommended. 3. Numerous lower lobe predominant circumscribed pulmonary nodules. These are indeterminate but worrisome for metastases. 4. 1.8 x 1.5 cm spiculated right upper lobe nodule which occludes a segmental br anch to the anterior segment of the right upper lobe. 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 5. Numerous groundglass nodular opacities throughout the lungs. These favor synchronous lesions although a superimposed infectious process could appear similar. No consolidation to suggest pneumonia. 6. Mildly enlarged mediastinal and bilateral hilar lymph nodes. Brady involvement cannot be excluded. ACT 112: Positive. There are findings on this exam that require communication between the performing entity and the patient following Patient Test Result Information Act ([place] Act 112) guidelines. Electronically signed by: Kenny Quintero M.D. 07/24/2024 12:42 PM Supervising Physician Co-Signing Physician Notes Patient seen and examined at bedside. Discussed imaging findings, including likely primary lung malignancy, and discussed next steps, including: further imaging for staging (abdomen/pelvis, MRI brain), pulmonary consult for biopsy for lymph nodes, f/u outpatient with heme/onc for review of results and likely need for treatment options. Differential includes: adenocarcinoma, squamous cell, small cell lung cancer, less likely infectious, malignancy of primary outside lung, autoimmune. Discussed need for tobacco cessation. Patient appreciative of the above update, agreeable to workup. I have seen and discussed the case with the collaborating advanced practitioner. I agree with the above H&P. I have reviewed and confirmed the patients medical history, the findings on physical examination, and the patients diagnosis and treatment plan with Ozzy Toney NP and agree with the information documented. I spent a total of 20 minutes coordinating, documenting, and providing care for this patient excluding time spent in the performance of separately billed services. All of the aforementioned completed outside of collaborating with the assigned advanced practitioner for a full treatment plan. I have reviewed the advanced practitioner's documentation, and I agree with, and take responsibility for the plan of care
[2024-07-24] MEDS: LORazepam 2 MG/1 ML VIAL IV STA (14:34)
--- NOTE | 2024-07-24 15:24 | Magnetic Resonance Report ---
MRI OF THE BRAIN WITHOUT AND WITH IV CONTRAST CLINICAL HISTORY: Lung mass. Concern for metastatic disease. COMPARISON STUDY: No previous studies for comparison. TECHNIQUE: Utilizing a 1.5 [place] magnet and dedicated coil, multiplanar, multiecho imaging of the br ain was performed pre and postcontrast administration. IV administration of Gadavist contrast was un eventful. Thin cut T1 post contrast imaging was performed. FINDINGS: There are no foci of restricted diffusion to suggest acute infarct. No acute intracranial h emorrhage, midline shift or mass effect is present. Ventricular system is normal. Basal cisterns are patent. Flow-voids for the major intracranial vessels are present. There is no intracranial mass or p athologic enhancement. No parenchymal signal abnormality is identified. There are no calvarial lesion s. There is no evidence for sinusitis. There is no fluid within the mastoid air cells. IMPRESSION: No evidence for metastatic disease. Unremarkable MRI of the brain. ACT 112: Negative or not required by law. Electronically signed by: Kenny Quintero M.D. 07/24/2024 3:22 PM
--- NOTE | 2024-07-24 15:54 | CT Scan Report ---
CT abdomen pelvis wo/w con CLINICAL HISTORY: r/o mets known lung mass COMPARISON STUDY: Chest CT same date TECHNIQUE: Helical axial CT of the abdomen and pelvis was performed before and after 93 cc of intrave nous Optiray. Sagittal and coronal reconstructions were done. Total exam DLP 874.41mGy*cm FINDINGS: Multiple bilateral lower lobe pulmonary nodules consistent with metastatic disease are note d and have been described fully on the chest CT of the same date. There are no liver or adrenal metas tases identified. The gallbladder and bile ducts are unremarkable. There is no renal lesion identified. There is no obs tructive uropathy. The spleen is unremarkable. There is no aortic aneurysm or periaortic adenopathy. There is no bowel obstruction or free air. There is no ascites. In the pelvis, the appendix is not identified. The rectum is moderately distended with stool. The [place] parth is anteflexed and midline. There is no uterine enlargement. Hypoattenuating ovarian lesions are s tatistically follicles.. There is no osseous metastasis. The patient is status post L5-S1 laminectomy and fusion. IMPRESSION: No metastatic disease below the diaphragm. Multiple bilateral pulmonary nodules are note d. Increased stool burden with moderate distention of the rectum with gas and stool. ACT 112: Negative or not required by law. Electronically signed by: Aurora Murrieta M.D. 07/24/2024 3:52 PM
[2024-07-24] MEDS: GADOBUTROL 65ML VIAL IV ONE (16:10)
[2024-07-24] MEDS: ENOXAPARIN INJ 40 MG/0.4 ML SYR SQ SCH (17:03)
[2024-07-24] MEDS: NICOTINE 21 MG/24 HR TDSY TD SCH (17:11)
--- NOTE | 2024-07-24 19:14 | Pulmonary Consultation ---
Date of Consultation July 24, 2024 Assessment & Plan (1) Multiple pulmonary nodules determined by computed tomography of lung: Lung nodules and mass are highly concerning for metastatic primary lung cancer. Patient agreeable with bronchoscopy and will try to get her on the schedule 07/25/2024. She understands the risks which include the following, but are not limited to: Hemorrhage, pneumothorax, need for prolonged mechanical ventilation, mediastinitis, need for additional procedures, sampling error, myocardial infarction and stroke. Fortunately, CT abdomen/pelvis and MRI brain was unrevealing for further metastatic disease. (2) Smoking greater than 25 pack years: Smoking cessation highly encouraged. History of Present Illness Reason for Consultation: Multiple lung masses Attending Physician: Efrain Naranjo MD History of Present Illness 48-year-old female with an extensive smoking history since her teenage years about 1 pack/day who presented with pleurisy on her right side. Chest CT revealed a 4.5 x 3.8 cm spiculated left lower lobe mass and a 1.8 x 1.5 cm spiculated right upper lobe nodule. Also seen are numerous groundglass opacities and mildly enlarged hilar and mediastinal lymph nodes. Patient does endorse a chronic cough with occasional sputum production. No recent fevers, chills or night sweats. She has lost about 15 pounds of weight over the past year. She notes significant stressors with her family as of late. Pulmonary is consulted for management of the lung lesions. Allergies Allergy/AdvReac Type Severity Reaction Status Date / Time Sulfa (Sulfonamide Allergy Severe Swelling Verified 09/30/21 12:22 Antibiotics) of Lip/Tongue/Throat Home Medications Medication Instructions Recorded Confirmed Type etonogestrel 68 mg subdermal 1 implant subdermal DIRECTED 08/17/21 07/24/24 History implant (Nexplanon) albuterol sulfate 90 mcg/actuation 1 inh inhalation QID PRN sob 08/30/21 07/24/24 History aerosol inhaler acetaminophen 500 mg tablet (Pain 1,000 mg PO TID PRN Pain 07/24/24 07/24/24 History Reliever (acetaminophen)) Patient History Medical History Anxiety Asthma Presence of subdermal contraceptive implant Surgical History H/O cone biopsy of cervix History of tonsillectomy Previous back surgery Family History Grandfather (Maternal) Heart disease Denies family history of Ovarian cancer Prostate cancer Diabetes Breast cancer Colorectal cancer Hypertension Social History (Updated 08/17/21 @ 15:27 by Chata Phelps MD) Smoking Status: Current every day smoker Tobacco Type: Cigarettes Cigarettes Per Day: 20; Second Hand Exposure: Yes; Do You Dip or Chew Tobacco: No; Tobacco Cessation Education Requested by Patient: No Hx Alcohol Use: Yes Alcohol type: beer Hx Substance Use: No Preferred Language: Vietnamese Communication Ability: Effective Director Health Required: No Beliefs That Will Affect Care: None Current Living Situation: Other current occupational status: employed current occupation: [employer] How many Children do You have: 1 Other Information That Helps Us Care for You: No Feels Safe at Home: Yes Safety Concerns: Feels Safe At This Time Assistive Devices: Denture - Lower and Glasses Assistive Devices Comment: partial lower denture Review of Systems Review of Systems: All systems reviewed & are unremarkable except as noted in HPI & below Physical Exam Physical Exam: Constitutional: Patient appears to be of their stated age. Patient is in no apparent distress. Patient is well-developed. Eyes: Pupils are equal round and reactive to light. Conjunctivae are normal. Anicteric sclera. Ears nose, mouth and throat: Mallampati class 2. Normal posterior oropharynx. Uvula is midline. Neck: Trachea is midline. Visual inspection is normal. Respiratory: Prolonged phase of exhalation. Minimal expiratory wheeze in the anterior lobes in the upper lung yusuf. Cardiovascular: Regular rate and rhythm. No murmurs. No edema. Gastrointestinal: Normal bowel sounds, soft, nontender and nondistended. No hepatosplenomegaly noted. Musculoskeletal: No cyanosis. Patient is able to move all extremities. Stre ngth is 5 out of 5 in the upper and lower extremities. Skin: No rashes, warm dry and intact. Neurologic: No obvious focal neurological deficits seen. Psychiatric: Alert and oriented x3 with a euthymic affect. Results & Data Results & Data Vital Signs (Past 12 Hours) Vital Signs Temp Pulse Pulse Pulse Resp BP BP 07/24/24 16:04 07/24/24 15:50 36.8 C 87 16 07/24/24 13:00 77 20 138/99 07/24/24 11:40 102 H 07/24/24 11:23 86 20 137/98 07/24/24 11:19 80 20 07/24/24 10:52 36.7 C 114 H 18 154/104 H BP Pulse Ox O2 Del Method 07/24/24 16:04 Room Air 07/24/24 15:50 154/90 H 97 Room Air 07/24/24 13:00 99 Room Air 07/24/24 11:40 07/24/24 11:23 96 Room Air 07/24/24 11:19 96 Room Air 07/24/24 10:52 94 Room Air PG Care Time/CCT Total # of Minutes Spent Total Time Spent with Patient: Total time spent is greater than 50% in coordination of care (as documented) at patient's floor/unit and/or counseling patient: Coding Level of Care Code 73863 IN/OBS CONSULT LVL 4,60M Diagnoses Multiple pulmonary nodules determined by computed tomography of lung R91.8 Smoking greater than 25 pack years F17.210
[2024-07-25] MEDS: ACETAMINOPHEN 325 MG TAB PO PRN (03:19)
--- NOTE | 2024-07-25 05:56 | Electrocardiogram Report ---
Test Reason : Blood Pressure : */* mmHG Vent. Rate : 82 BPM Atrial Rate : 82 BPM P-R Int : 124 ms QRS Dur : 84 ms QT Int : 334 ms P-R-T Axes : 49 90 64 degrees QTcB Int : 390 ms Normal sinus rhythm Rightward axis Borderline ECG No previous ECGs available Confirmed by Leon Rees ([id number]) on 07/25/2024 5:55:58 AM Referred By: Confirmed By: Leon Rees
[2024-07-25 08:18] LABS: Hematocrit (blood only) 46.8 % (37.0-47.0); Hemoglobin 15.6 g/dl (12.0-16.0); Mean Corpuscular Hemoglobin 31.8 pg (25.0-34.0); Mean Corpuscular Hgb Conc 33.3 g/dL (32.0-36.0); Mean Corpuscular Volume 95.3 fL (80.0-100.0); Mean Platelet Volume 9.8 fL (9.4-12.4); Platelet Count 357 K/uL (130-400); RDW Coefficient of Variation 15.6 % (11.5-14.5); Red Blood Count 4.91 M/uL (4.20-5.40); White Blood Count 14.25 K/ul (4.8-10.8)
[2024-07-25 08:37] LABS: INR 0.9 (0.9-1.1); Prothrombin Time 10.3 Seconds (9.0-12.0)
[2024-07-25 08:43] LABS: BUN Creatinine Ratio 10.7 (10-20); Calcium 9.6 mg/dl (8.6-10.3); Creatinine Clr Calc Pharmacy 103.8 ml/min; Potassium 4.2 mmol/L (3.5-5.1)
--- NOTE | 2024-07-25 10:16 | Hospitalist Progress Note ---
Date of Service July 25, 2024 Assessment & Plan (1) Lung mass: (2) Asthma: (3) Anxiety: Plan Sarah is a 48 year old female with PMH of anxiety, lyme disease in 2022, and tobacco use who presented to the ED yesterday with SOB and back pain. In the ED, she had a workup including labs that were remarkable for leukocytosis 15.9, neutrophils 11.06, and LDH 318. She underwent a chest CTA which revealed lung masses suggestive of malignancy. She then underwent a brain MRI and CT A/P which were both unremarkable. Pulmonology was consulted for further evaluation and management of the lung masses. She is scheduled for a navigational bronchoscopy with biopsies this morning. 1. Lung mass Acute problem. Pulmonology consulted. Bronch and biopsy today. Possible heme/onc consult. 2. Asthma Chronic, stable. Continue PRN albuterol. 3. Anxiety Chronic, stable. Not on medications at home. DVT Prophylaxis: subQ lovenox Code Status: FULL CODE - As per discussion at bedside with the patient. PCP: Joshua Sunshine PA-C Disposition: Not medically cleared for discharge. Awaiting pulmonology recommendations Patient seen in collaboration with Dr Lucio. Please see addendum. I spent a total of 50 minutes coordinating, documenting and providing care for this patient excluding time spent in the performance of separately billed services or time spent by another provider/QHP. Admission and Anticipated Discharge Date Admission Date: July 24, 2024 Supervising Physician Co-Signing Physician Notes Patient seen and examined Patient awaiting bronchoscopy and possible biopsy Will need follow up of pathology and possible outpatient oncology f/u if malignant No metastatic lesion seen below diaphragm on CT abd/pelvis or MRI brain Counseled patient regarding smoking cessation Agree with findings and plans as detailed by Sunshine [place] Aubrie Smith is doing well this morning. She is feeling anxious about her bronchoscopy and biopsy. She denies fevers, chills, chest pain, palpitations, SOB, abdominal pain, N/V/D, myalgia or joint pain. She reports occasional night sweats on her torso and back and reports an intermittent slightly productive cough with clear phlegm, denies hemoptysis. Her boyfriend, Patricio, is present at bedside with her. No concerns from nursing. Review of Systems Review of Systems: All systems reviewed & are unremarkable except as noted in HPI & below Physical Exam Physical Exam: VITALS: Reviewed and VSS. GEN: Healthy appearing, well-developed, thin female, NAD. PSYCH: Good Judgment. AOx3. Normal memory, mood, and affect. HEENT: Head NC/AT. Sclera white, conjunctiva pink. Nares without rhinorrhea. Nasal and oral mucosa pink. NECK: Supple, with no masses. CV: RRR, no m/r/g. LUNGS: Rhonchi present in bilateral posterior lung yusuf ABD: Soft, NT/ND, NBS, no masses or organomegaly. SKIN: Warm, well perfused. No skin rashes or abnormal lesions. MSK: No deformities, Normal gait. EXT: No clubbing, cyanosis, or edema. NEURO: Ambulating with no limitations. Normal muscle strength and tone. No focal deficits. Results & Data Results & Data Vital Signs (Past 12 Hours) Vital Signs Temp Pulse Resp BP Pulse Ox O2 Del Method 07/25/24 07:43 36.9 C 94 H 16 160/84 H 96 Room Air Laboratory Results Short CBC 07/24/24 07/25/24 Range/Units 11:15 07:38 WBC 15.95 H 14.25 H (4.8-10.8) K/ul Hgb 16.4 H 15.6 (12.0-16.0) g/dl Hct 49.8 H 46.8 (37.0-47.0) % Plt Count 366 357 (130-400) K/uL BMP 07/24/24 07/25/24 11:15 07:38 Sodium 139 142 Potassium 4.0 4.2 Chloride 106 105 Carbon Dioxide 27 31 BUN 5 L 6 Creatinine 0.50 L 0.56 L Glucose 97 105 H Calcium 9.5 9.6 Liver Function 07/24/24 Range/Units 11:15 Total Bilirubin 0.7 (0.2-1.0) mg/dl AST 19 (13-39) U/L ALT 12 (7-52) U/L Alkaline Phosphatase 67 (34-104) U/L Albumin 4.4 (3.4-5.0) gm/dl I have independently reviewed and interpreted patient's labs including CBC, BMP, PTT, PT/INR. Diagnostic Findings Chest CTA 07/24/24 11:02 CT ANGIOGRAPHY OF THE CHEST, PULMONARY EMBOLUS PROTOCOL CLINICAL HISTORY: Shortness of breath. Pain with inspiration. Evaluate for pulmonary embolus. COMPARISON STUDY: Chest radiograph October 17, 2019. TECHNIQUE: Following IV administration of 112 mL of Optiray, helical axial images of the chest were obtained utilizing the pulmonary embolus protocol. Maximal intensity projections and sagittal and coronal reformats were viewed on an independent 3D workstation. IV contrast was administered without complication. Automated exposure control was utilized for the study. A dose lowering technique was utilized adhering to the principles of ALARA. CT DOSE: 358.88 mGy.cm FINDINGS: No pulmonary emboli are identified. Mildly enlarged bilateral hilar lymph nodes are present. An enlarged subcarinal lymph node measures approximately 2.9 x 1.6 cm. The size of the heart is normal. There is no pericardial effusion. There is no thoracic aortic dissection. Upper lobe predominant emphysema is noted. There is a spiculated 4.5 x 3.8 cm subpleural left lower lobe mass. Note is also made of a 1.8 x 1.5 cm spiculated right upper lobe nodule on image 154 of 271. This results in occlusion of the segmental branch to the anterior segment of the right upper lobe. However, there is no postobstructive pneumonia. Diffuse bronchial wall thickening is present. Numerous lower lobe prominent circumscribed nodules are present. The largest is an 8 mm right lower lobe nodule on image 66. There are also numerous groundglass nodules throughout the lungs. Index left upper lobe nodule on image 219 measures 1.9 cm. Index right upper lobe nodule on image 188 measures 1.4 cm. There is no pleural effusion. No pneumothorax is present. Visualized portions of the upper abdomen are unremarkable. No fractures or suspicious lesions within the bony thorax are identified. IMPRESSION: 1. No pulmonary emboli identified. 2. 4.5 x 3.8 cm spiculated left lower lobe mass. This is suggestive of a primary lung malignancy. Pulmonary consultation is recommended. 3. Numerous lower lobe predominant circumscribed pulmonary nodules. These are indeterminate but worrisome for metastases. 4. 1.8 x 1.5 cm spiculated right upper lobe nodule which occludes a segmental branch to the anterior segment of the right upper lobe. 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 5. Numerous groundglass nodular opacities throughout the lungs. These favor synchronous lesions although a superimposed infectious process could appear similar. No consolidation to suggest pneumonia. 6. Mildly enlarged mediastinal and bilateral hilar lymph nodes. Brady involvement cannot be excluded. ACT 112: Positive. There are findings on this exam that require communication between the performing entity and the patient following Patient Test Result Information Act ([place] Act 112) guidelines. Electronically signed by: Kenny Quintero M.D. 07/24/2024 12:42 PM Brain MRI 07/24/24 13:27 MRI OF THE BRAIN WITHOUT AND WITH IV CONTRAST CLINICAL HISTORY: Lung mass. Concern for metastatic disease. COMPARISON STUDY: No previous studies for comparison. TECHNIQUE: Utilizing a 1.5 [place] magnet and dedicated coil, multiplanar, multiecho imaging of the brain was performed pre and postcontrast administration. IV administration of Gadavist contrast was uneventful. Thin cut T1 post contrast imaging was performed. FINDINGS: There are no foci of restricted diffusion to suggest acute infarct. No acute intracranial hemorrhage, midline shift or mass effect is present. Ventricular system is normal. Basal cisterns are patent. Flow-voids for the major intracranial vessels are present. There is no intracranial mass or pathologic enhancement. No parenchymal signal abnormality is identified. There are no calvarial lesions. There is no evidence for sinusitis. There is no fluid within the mastoid air cells. IMPRESSION: No evidence for metastatic disease. Unremarkable MRI of the brain. ACT 112: Negative or not required by law. Electronically signed by: Kenny Quintero M.D. 07/24/2024 3:22 PM Abdomen/Pelvis CT 07/24/24 14:10 CT abdomen pelvis wo/w con CLINICAL HISTORY: r/o mets known lung mass COMPARISON STUDY: Chest CT same date TECHNIQUE: Helical axial CT of the abdomen and pelvis was performed before and after 93 cc of intravenous Optiray. Sagittal and coronal reconstructions were done. Total exam DLP 874.41mGy*cm FINDINGS: Multiple bilateral lower lobe pulmonary nodules consistent with metastatic disease are noted and have been described fully on the chest CT of the same date. There are no liver or adrenal metastases identified. The gallbladder and bile ducts are unremarkable. There is no renal lesion identified. There is no obstructive uropathy. The spleen is unremarkable. There is no aortic aneurysm or periaortic adenopathy. There is no bowel obstruction or free air. There is no ascites. In the pelvis, the appendix is not identified. The rectum is moderately distended with stool. The uterus is anteflexed and midline. There is no uterine enlargement. Hypoattenuating ovarian lesions are statistically follicles.. There is no osseous metastasis. The patient is status post L5-S1 laminectomy and fusion. IMPRESSION: No metastatic disease below the diaphragm. Multiple bilateral pulmonary nodules are noted. Increased stool burden with moderate distention of the rectum with gas and stool. ACT 112: Negative or not required by law. Electronically signed by: Aurora Murrieta M.D. 07/24/2024 3:52 PM Medications Administered Current Inpatient Medications Acetaminophen (Acetaminophen 325 Mg Tab) 650 mg PO Q4H PRN PRN Reason: pain/fever Stop: 08/23/24 13:26 Last Admin: 07/25/24 03:19 Dose: 650 mg Enoxaparin Sodium (Enoxaparin Inj 40 Mg/0.4 Ml Syr) 40 mg SQ Q24H [facility] Stop: 08/23/24 15:59 Last Admin: 07/24/24 17:03 Dose: Not Given Miscellaneous (Remove Nicoderm Patch) 1 each N/A DAILY@0859 [facility] Stop: 08/24/24 08:58 Last Admin: 07/25/24 09:10 Dose: 1 each Nicotine (Nicotine 21 Mg/24 Hr Tdsy) 1 patch TD QAM [facility] Stop: 08/23/24 13:44 Last Admin: 07/25/24 09:09 Dose: 1 patch (2) Asthma Asthma complication type: unspecified
[2024-07-25] MEDS ORDERED: ROCURONIUM BROMIDE 10 MG/ML 5 ML VIAL IV ONE ×2 (12:40→14:47)
[2024-07-25] MEDS ORDERED: DEXAMETHASONE SOD INJ 4 MG/ML VIAL ONE (12:40)
[2024-07-25] MEDS ORDERED: MIDAZOLAM HCL 1 MG/ML 2ML VIAL ONE ×2 (12:40→14:46)
[2024-07-25] MEDS ORDERED: PROPOFOL IV EMULSION 10 MG/ML 20 ML VIAL IV ONE ×2 (12:40→14:47)
[2024-07-25] MEDS ORDERED: LIDOCAINE 2% 2 ML VIAL/AMP(20MG/ML) INFIL ONE (12:40)
[2024-07-25] MEDS ORDERED: ONDANSETRON INJ 2 MG/ML 2 ML VIAL ONE (12:40)
[2024-07-25] MEDS ORDERED: fentaNYL citrate PF 100 MCG/2 ML VIAL ONE (12:41)
--- NOTE | 2024-07-25 13:03 | History & Physical Bridge Note ---
Date of Service July 25, 2024 History & Physical Bridge Note I have examined the patient, reviewed the History & Physical and in the interval since the performance of the History & Physical I have noted the following changes of clinical significance: no changes noted
[2024-07-25] MEDS: LACTATED RINGER'S 1,000 ML IV SCH (13:05)
[2024-07-25] MEDS ORDERED: ESMOLOL HCL INJ 10 MG/ML 10ML VIAL IV ONE (14:37)
[2024-07-25] MEDS ORDERED: PHENYLEPHRINE 100MCG/ML 5ML SYR ONE (14:51)
[2024-07-25 15:00] LABS: Fibrinogen 452 mg/dl (184-400); Partial Thromboplastin Time 28 Seconds (21-31); Prothrombin Time 10.5 Seconds (9.0-12.0)
[2024-07-25] MEDS ORDERED: STAT IV/IM STA (15:08)
[2024-07-25] MEDS ORDERED: STAT IV Infusion **Titration per Protocol STA ×2 (15:08)
--- NOTE | 2024-07-25 15:19 | Procedure Note ---
Procedure Note Date of Service July 25, 2024 Procedure: Fiberoptic bronchoscopy Electromagnetic navigational bronchoscopy with fluoroscopic guidance Electromagnetic navigational bronchoscopy with transbronchial biopsies and FNA biopsy under fluoroscopic guidance Provider: Mauri Avina MD Consent: Signed by patient and timeout verified prior to procedure. Indication: Abnormal CT scan with multifocal lung nodules and Procedure: Patient was brought to the OR suite. Consent was verified. Appropriate radiographic studies had been reviewed prior to the procedure. General anesthesia was initiated by the anesthesia team and the patient was intubated with an 8.5 endotracheal tube. After initiation of general anesthesia, the fiberoptic scope was advanced through the existing endotracheal tube via the adapter. The tube was 5 cm above the flo and secured in place. A systematic inspection of the airways was then conducted. The right tracheobronchial tree was normal in anatomic configuration with normal mucosa. Left tracheobronchial tree also demonstrated a normal anatomic configuration with normal mucosa. No endobronchial lesions were identified. The fiberoptic scope was then removed. The robotic adapter was then secured to the endotracheal tube and secured using the flexible arm attached to the bed. The patient had previously been placed on a bed with an electromagnetic navigation field and a tilt table in place. The robot was advanced to the head of the bed and the robotic arm was docked to the endotracheal tube via the robotic adapter. Robot arm was withdrawn in normal fashion and the scope attached with the antibuckling device. The robotic scope was then maneuvered into the endotracheal tube where controller registration took place. Once that was confirmed the scope was advanced to the main flo and verified in good position. Navigational registration was then conducted without difficulty. Once registration was completed, the robotic bronchoscope was used to navigate to left lower lobe pulmonary mass. Once the scope was approximately 25 mm from the lesion, a fluoroscopic tomographic spin was conducted with reconstruction of images. The lesion was marked and additional navigation was conducted under direct fluoroscopic guidance with augmented fluoroscopy. Once the scope was appropriately angled towards the lesion, under direct fluoroscopic guidance, FNA needle was passed into the lesion. 3 FNA biopsies were performed. Rapid onsite pathologic evaluation demonstrated malignant tissue. Additionally 3 forcep biopsies were performed. The scope was then backed away from the lesion and there was significant bleeding noted. The robot was then urgently undocked from the patient and removed. Therapeutic bronchoscope was then reinserted to evaluate the airways and bleeding. Significant bright red blood bleeding was noted from the left lower lobe region. Approximately 10 mL of 1:10,000 epinephrine was instilled in this region to help control bleeding. 200 mL of cold saline was utilized to help achieve hemostasis. Blood was noted to be pooling in the bilateral tracheobronchial tree and this was actively suctioned. Bleeding was finally localized to the left lateral basal segment. Once adequate hemostasis was felt to be achieved, the therapeutic bronchoscope was removed from the airway. After discussion with anesthesiology, it was decided to leave the patient intubated on paralytics and transferred to the ICU in case there is further bleeding. Patient's daughter, Ivone Acharya was updated over the phone. EBL: 150 ml Summary: Left lower lobe mass biopsied with rapid onsite pathology concerning for malignant tissue. Significant bleeding encountered after biopsy of the left lower lobe mass and the patient was transferred to the ICU intubated and on mechanical ventilation. She is hemodynamically stable and requiring minimal ventilator support. Postprocedure chest x-ray shows an area of postbiopsy hemorrhage inferior to the lung mass. [facility] [place]odes (Charges) Pulmonary/Thoracic Procedure 1: Pulmonary and Thoracic: 10134 Navigational Bronchoscopy Procedure 2: Pulmonary and Thoracic: 33283 Bronchoscopy w bronchial or endobronchial bx Procedure 3: Pulmonary and Thoracic: 05558 Bronchoscopy w/ transbronchial lung bx Coding CPT Codes Pulmonary/Thoracic - Pulmonary and Thoracic: 29144 Navigational Bronchoscopy ([id number]) Pulmonary/Thoracic - Pulmonary and Thoracic: 70608 Bronchoscopy w bronchial or endobronchial bx ([id number]) Pulmonary/Thoracic - Pulmonary and Thoracic: 26701 Bronchoscopy w/ transbronchial lung bx ([id number]) Additional Codes Date of Service ([email or web address])
[2024-07-25] MEDS: fentaNYL citrate 2,500 MCG/250 ML BAG IV SCH (15:22)
[2024-07-25] MEDS: propofoL 1,000 MG/100 ML VIAL IV SCH (15:22)
[2024-07-25] MEDS: fentaNYL BOLUS from BAG IV PRN (15:26)
[2024-07-25] MEDS: CISATRACURIUM BESYLATE 40 MG in DEXTROSE 5% 80 ML IV SCH (15:27)
--- NOTE | 2024-07-25 15:36 | XRay Report ---
XR chest 1V portable CLINICAL HISTORY: Post Bronchoscopy COMPARISON STUDY: 10/17/2019 FINDINGS: Single view chest demonstrates an endotracheal tube with the tip proximally 5 cm above the flo. There is a left lower lobe mass lesion that was previously described on CT scanning. There is no evidence of atelectasis, pneumothorax, or pneumomediastinum status post bronchoscopy. IMPRESSION: Endotracheal tube tip 5 cm above the flo. Known left lower lobe mass. No acute findin gs post bronchoscopy. ACT 112: Negative or not required by law. Electronically signed by: Aurora Murrieta M.D. 07/25/2024 3:33 PM
[2024-07-25] MEDS: PROPOFOL BOLUS FROM BAG IV PRN (15:46)
[2024-07-25] MEDS: ARTIFICIAL TEARS OP OINT 3.5 GM TUBE OP SCH (15:53)
[2024-07-25] MEDS: TXA 10% Non-IV Routes 100 MG/ML VIAL ONE (15:58)
[2024-07-25] MEDS ORDERED: Nursing to Pharmacy Communication SCH (16:00)
[2024-07-25 16:22] LABS: Hematocrit (blood only) 44.9 % (37.0-47.0); Hemoglobin 15.2 g/dl (12.0-16.0); Mean Corpuscular Hemoglobin 32.5 pg (25.0-34.0); Mean Corpuscular Hgb Conc 33.9 g/dL (32.0-36.0); Mean Corpuscular Volume 95.9 fL (80.0-100.0); Mean Platelet Volume 9.5 fL (9.4-12.4); Platelet Count 336 K/uL (130-400); RDW Coefficient of Variation 15.6 % (11.5-14.5); RDW Standard Deviation 55.4 fL (36.4-46.3); Red Blood Count 4.68 M/uL (4.20-5.40); White Blood Count 21.32 K/ul (4.8-10.8)
[2024-07-25 16:40] LABS: BUN Creatinine Ratio 15.2 (10-20); Calcium 9.2 mg/dl (8.6-10.3); Creatinine Clr Calc Pharmacy 126.3 ml/min; Magnesium 1.7 mg/dl (1.7-2.4); Potassium 4.2 mmol/L (3.5-5.1)
[2024-07-25 16:47] LABS: Troponin I High Sensitivity 2.8 pg/ml (0-14)
[2024-07-25] MEDS: PROPOFOL IV EMULSION 10 MG/ML 100 ML VIAL IV ONE (17:11)
[2024-07-25] MEDS: TXA 10% Non-IV Routes 100 MG/ML VIAL NEB ONE ×2 (17:11→23:09)
[2024-07-25] MEDS: OPTIRAY 320 125ml IV ONE (19:44)
[2024-07-25] MEDS ORDERED: methylPREDNISolone 125 MG/2 ML VIAL IV STA (19:51)
[2024-07-25 20:15] LABS: Fibrinogen 466 mg/dl (184-400)
--- NOTE | 2024-07-25 20:31 | CT Scan Report ---
EXAM: CT Angiography Chest With Intravenous Contrast INDICATION: Hemoptysis following left lower lobe biopsy. TECHNIQUE: Axial computed tomographic angiography images of the chest with intravenous contrast. Sagittal and coronal reformatted images were created and reviewed. This CT exam was performed using one or more of the following dose reduction techniques: automated exposure control, adjustment of the mA and/or kV according to patient size, and/or use of iterative reconstruction technique. MIP reconstructed images were created and reviewed. CONTRAST: 119ml of Optiray 320 was administered intravenously. COMPARISON: No relevant prior studies available. FINDINGS: Pulmonary arteries: No pulmonary embolus noted. No evidence of acute extravasation in the left lower quadrant. Aorta: No aneurysm. Lungs and pleural spaces: There is a 3.7 cm transverse by 4.3 cm AP by 4.4 cm long spiculated mass in the left lower lobe. Along the anterior inferior aspect is irregular dense soft tissue opacity measuring 1.4 cm AP by 2.8 cm transverse by 1.8 cm long contiguous with lower lobe airways some of which are thickened. Surrounding groundglass opacity noted. Innumerable pulmonary nodules scattered throughout all lobes of both lungs too numerous to count ranging in size from 3 to 7 mm. There are multiple areas of groundglass opacity throughout the lungs some centered about airways which are mildly thickened. Centrilobular emphysematous changes present without dominant bulla or bleb. Heart: No abnormality noted. No cardiomegaly. No significant pericardial effusion. No evidence of RV dysfunction. Bones/joints: No acute or atypical chronic changes. Soft tissues: Lymph nodes: Confluent inflamed nodes present in the pretracheal, aorta pulmonic and subcarinal compartments. There is are mildly confluent bilateral hilar nodes. IMPRESSION: 1. Spiculated left lower lobe neoplasm. There is irregular surrounding tissue of similar density which could reflect tumor invasion involving multiple subsegmental left lower lobe airways. Hemorrhage related to biopsy could also contribute. 2. Metastatic pulmonary nodules and adenopathy. 3. Diffuse patchy groundglass infiltrates. Infectious and chemical pneumonitis related to aspiration considered as are multifocal areas of hemorrhage. 4. No pulmonary embolus identified. ACT 112: N/A Electronically signed by Carolyn Haynes 07-25-2024 8:31 PM
[2024-07-25] MEDS: guaiFENesin/CODEINE 100MG/10MG 5ML UDC PO SCH (20:57)
[2024-07-25] MEDS: methylPREDNISolone 60 MG in SYRINGE 0 ML IV STA (20:57)
[2024-07-25] MEDS: ALBUTEROL 0.083% NEBU SOLN 3 ML VIAL NEB SCH (20:58)
[2024-07-25] MEDS: BUDESONIDE 0.5 MG/2 ML VIAL (PULMICORT) NEB STA (21:11)
[2024-07-26 06:29] LABS: Basophils # (auto) 0.04 K/uL (0.00-0.20); Basophils % (auto) 0.2 %; Eosinophils # (auto) 0.16 K/uL (0.00-0.50); Eosinophils % (auto) 0.9 %; Hematocrit (blood only) 41.6 % (37.0-47.0); Hemoglobin 13.9 g/dl (12.0-16.0); Immature Granulocytes % (auto) 0.6 %; Lymphocytes % (auto) 15.9 %; Mean Corpuscular Hgb Conc 33.4 g/dL (32.0-36.0); Mean Corpuscular Volume 95.9 fL (80.0-100.0); Mean Platelet Volume 9.3 fL (9.4-12.4); Monocytes # (auto) 1.14 K/uL (0.11-0.59); Monocytes % (auto) 6.5 %; Neutrophils # (auto) 13.34 K/uL (1.40-6.50); Neutrophils % (auto) 75.9 %; Platelet Count 308 K/uL (130-400); RDW Coefficient of Variation 15.4 % (11.5-14.5); RDW Standard Deviation 54.1 fL (36.4-46.3); Red Blood Count 4.34 M/uL (4.20-5.40); White Blood Count 17.58 K/ul (4.8-10.8)
[2024-07-26 06:50] LABS: BUN Creatinine Ratio 14.3 (10-20); Calcium 9.1 mg/dl (8.6-10.3); Creatinine Clr Calc Pharmacy 103.8 ml/min; Magnesium 1.8 mg/dl (1.7-2.4); Phosphorus 4.8 mg/dl (2.5-4.9); Potassium 4.5 mmol/L (3.5-5.1)
--- NOTE | 2024-07-26 07:49 | Anesthesiology Consultation ---
Date of Service July 25, 2024 Assessment & Plan ASA ASA2 Proposed Anesthesia Anesthesia Type: General Risk / Benefits Reviewed With: PT / POA / Parent / Guardian History Surgery Operation Date: 07/25/24 07:00 Proposed Procedures p Robotic Navigational Bronchoscopy - Mauri Avina MD Height/Weight Height: 5 ft 4 in Weight: 54.1 kg Allergies Allergy/AdvReac Type Severity Reaction Status Date / Time Sulfa (Sulfonamide Allergy Severe Swelling Verified 09/30/21 12:22 Antibiotics) of Lip/Tongue/Throat Medications Home Medications Medication Instructions Recorded Confirmed Last Taken etonogestrel 68 mg subdermal 1 implant subdermal DIRECTED 08/17/21 07/24/24 Unknown implant (Nexplanon) albuterol sulfate 90 mcg/actuation 1 inh inhalation QID PRN sob 08/30/21 07/24/24 Unknown aerosol inhaler acetaminophen 500 mg tablet (Pain 1,000 mg PO TID PRN Pain 07/24/24 07/24/24 Unknown Reliever (acetaminophen)) Active Medications Generic Name Dose Route Start Last Admin Trade Name Freq PRN Reason Stop Dose Admin Acetaminophen 650 mg 07/24/24 13:27 07/25/24 03:19 Acetaminophen 325 Mg Tab PO 08/23/24 13:26 650 mg Q4H PRN Administration pain/fever Albuterol 2.5 mg 07/25/24 20:45 07/26/24 02:22 Albuterol 0.083% Nebu Soln 3 Ml Vial NEB 08/24/24 20:44 2.5 mg Q6R ANA Administration Protocol Guaifenesin/Codeine Phosphate 5 ml 07/25/24 19:30 07/26/24 01:26 Guaifenesin/Codeine 100mg/10mg 5ml Udc PO 08/24/24 19:29 5 ml Q6H ANA Administration Lactated Ringer's 1,000 mls @ 15 mls/hr 07/25/24 13:15 07/25/24 17:12 Lr IV 07/26/24 13:14 Not Given .Q24H ANA KVO Propofol 1,000 mg in 100 mls @ 12.984 mls/hr 07/25/24 15:15 07/26/24 05:52 Diprivan IV 07/28/24 15:14 Not Given .Q7H43M ANA Protocol 40 MCG/KG/MIN Fentanyl Citrate 2,500 mcg in 250 mls @ 12.5 mls/hr 07/25/24 15:15 07/25/24 16:31 Fentanyl Citrate IV 08/08/24 15:14 Infused .Q20H ANA Titration Protocol 125 MCG/HR Miscellaneous 1 each 07/25/24 08:59 07/25/24 09:10 Remove Nicoderm Patch N/A 08/24/24 08:58 1 each DAILY@0859 ANA Administration Multi-Ingredient Cream 1 appln 07/25/24 15:15 07/26/24 05:52 Artificial Tears Op Oint 3.5 Gm Tube OP 08/24/24 15:14 Not Given Q4H ANA Nicotine 1 patch 07/24/24 13:45 07/25/24 09:09 Nicotine 21 Mg/24 Hr Tdsy TD 08/23/24 13:44 1 patch QAM ANA Administration NPO Date Last Intake of Fluids: 07/24/24 Time Last Intake of Fluids: 13:00 Date Last Intake of Solids: 07/24/24 Time Last Intake of Solids: 13:00 Past Medical History Medical History Anxiety Asthma Presence of subdermal contraceptive implant Exercise / Class Metabolic Activity II 4-5 Yardwork/Stairs/Walk up hill Past Family History Family History Grandfather (Maternal) Heart disease Denies family history of Ovarian cancer Prostate cancer Diabetes Breast cancer Colorectal cancer Hypertension Past Surgical History Surgical History H/O cone biopsy of cervix History of tonsillectomy Previous back surgery Past Anesthesia History No Hx of Anesthesia Complications History of PONV No Hx of PONV Social History Smoking Status: Current every day smoker tobacco type: cigarettes Smoking cigarettes per day: 20 Do You Dip or Chew Tobacco: No Hx Alcohol Use: Yes Alcohol type: beer alcohol intake frequency: a few times a week Hx Substance Use: No substance use type: does not use Review of Systems ROS Unobtainable: All systems reviewed & are unremarkable except as noted in HPI & below Physical Exam Vital Signs Last Vital Signs Temp 36.9 C 07/26/24 05:00 Pulse 88 07/26/24 07:18 Resp 15 07/26/24 07:18 BP 114/67 07/26/24 07:00 Pulse Ox 95 07/26/24 07:18 O2 Del Method Oxymask 07/26/24 02:23 O2 Flow Rate 2 07/26/24 02:23 FiO2 40 07/25/24 16:30 ENMT Thyromental Distance: > or= 3.5 Finger Breadths Mallampati Class: II Respiratory Auscultation: lungs clear to auscultation bilaterally Cardiovascular Rate/Rhythm: regular rate and regular rhythm Testing Laboratory Results 07/26/24 06:10 07/26/24 06:10 PT 10.5 Seconds (9.0-12.0) 07/25/24 14:33 INR 1.0 (0.9-1.1) 07/25/24 14:33 APTT 28 Seconds (21-31) 07/25/24 14:33 Blood Type A Positive 07/25/24 14:33 Antibody Screen NEGATIVE 07/25/24 14:33 07/25/24 13:02 POC Ur Test NEG
--- NOTE | 2024-07-26 07:56 | Anesthesiology Progress Note ---
Date of Service July 25, 2024 Anesthesia Post Procedure Vital Signs Vital Signs: Temp Pulse Pulse Resp BP BP BP 07/26/24 07:18 88 15 07/26/24 07:00 114/07/26/24 05:00 36.9 C 113/07/26/24 05:00 113/07/26/24 05:00 113/07/26/24 05:00 11307/26/24 05:00 11307/26/24 05:00 11307/26/24 05:00 11307/26/24 05:00 11307/26/24 05:00 11307/26/24 05:00 11307/26/24 05:00 11307/26/24 05:00 11307/26/24 05:00 11307/26/24 05:00 11307/26/24 05:00 11307/26/24 05:00 11307/26/24 04:45 76 16 07/26/24 04:03 73 15 07/26/24 04:00 100/59 L 07/26/24 04:00 100/59 L 07/26/24 04:00 100/59 L 07/26/24 04:00 100/59 L 07/26/24 04:00 100/59 L 07/26/24 04:00 100/59 L 07/26/24 04:00 100/59 L 07/26/24 04:00 100/59 L 07/26/24 04:00 100/59 L 07/26/24 04:00 100/59 L 07/26/24 04:00 100/59 L 07/26/24 04:00 100/59 L 07/26/24 04:00 100/59 L 07/26/24 04:00 100/59 L 07/26/24 04:00 100/59 L 07/26/24 04:00 100/59 L 07/26/24 04:00 100/59 L 07/26/24 04:00 100/59 L 07/26/24 04:00 100/59 L 07/26/24 04:00 100/59 L 07/26/24 04:00 100/59 L 07/26/24 04:00 100/59 L 03/14/25 04:00 100/59 L 07/26/24 04:00 100/59 L 07/26/24 04:00 100/59 L 07/26/24 03:44 78 17 07/26/24 03:05 78 15 07/26/24 03:00 101/64 07/26/24 03:00 101/64 07/26/24 03:00 101/64 07/26/24 03:00 101/64 07/26/24 03:00 101/64 07/26/24 02:23 76 24 07/25/24 23:09 95 H 24 07/25/24 22:00 125/80 07/25/24 22:00 125/80 07/25/24 22:00 125/80 07/25/24 22:00 125/80 07/25/24 22:00 125/80 07/25/24 22:00 125/80 07/25/24 22:00 125/80 07/25/24 22:00 125/80 07/25/24 22:00 125/80 07/25/24 22:00 125/80 07/25/24 22:00 125/80 07/25/24 22:00 125/80 07/25/24 22:00 125/80 07/25/24 22:00 125/80 07/25/24 22:00 115 H 21 07/25/24 21:15 90 18 07/25/24 21:03 91 H 18 07/25/24 21:00 120/86 07/25/24 21:00 120/86 07/25/24 21:00 120/86 07/25/24 21:00 120/86 07/25/24 21:00 120/86 07/25/24 21:00 120/86 07/25/24 21:00 120/86 07/25/24 21:00 120/86 07/25/24 21:00 120/86 07/25/24 21:00 120/86 07/25/24 21:00 120/86 07/25/24 21:00 120/86 07/25/24 21:00 120/86 07/25/24 21:00 120/86 07/25/24 21:00 120/86 07/25/24 21:00 120/86 07/25/24 21:00 120/86 07/25/24 21:00 120/86 07/25/24 21:00 120/86 07/25/24 21:00 120/86 07/25/24 21:00 120/86 07/25/24 21:00 120/86 07/25/24 21:00 120/86 07/25/24 21:00 120/86 07/25/24 20:39 94 H 12 07/25/24 20:12 96 H 16 07/25/24 20:01 128/95 07/25/24 20:01 128/95 07/25/24 20:01 128/95 07/25/24 20:01 128/95 07/25/24 20:01 128/95 07/25/24 20:01 128/95 07/25/24 20:01 128/95 07/25/24 20:01 128/95 07/25/24 20:00 07/25/24 18:06 37.1 C 105 H 22 07/25/24 18:05 114/92 07/25/24 17:57 07/25/24 17:12 109 H 17 07/25/24 17:03 36.9 C 114 H 18 07/25/24 17:00 125/96 07/25/24 16:42 36.9 C 123 H 17 07/25/24 16:40 131/98 07/25/24 16:39 36.9 C 127 H 15 07/25/24 16:35 145/97 H 07/25/24 16:35 145/97 H 07/25/24 16:33 36.8 C 130 H 21 07/25/24 16:30 18 07/25/24 16:20 07/25/24 16:03 36.8 C 125 H 17 07/25/24 16:00 128/87 07/25/24 15:51 36.5 C 128 H 18 07/25/24 15:50 131/105 H 07/25/24 15:40 137 H 20 156/123 H 07/25/24 15:35 170/124 H 07/25/24 15:35 135 H 18 170/124 H 07/25/24 15:30 125 H 22 07/25/24 15:27 07/25/24 15:25 120 H 20 156/84 H 07/25/24 15:22 126 H 16 07/25/24 15:20 118 H 20 154/86 H 07/25/24 15:15 125 H 16 124/68 07/25/24 15:10 122 H 16 118/64 07/25/24 15:05 37 C 130 H 18 135/74 07/25/24 15:00 122 H 18 124/76 07/25/24 12:42 37.4 C 102 H 20 136/95 07/25/24 10:12 Pulse Ox O2 Del Method O2 Flow Rate FiO2 07/26/24 07:18 95 07/26/24 07:00 07/26/24 05:00 07/26/24 05:00 07/26/24 05:00 07/26/24 05:00 07/26/24 05:00 07/26/24 05:00 07/26/24 05:00 07/26/24 05:00 07/26/24 05:00 07/26/24 05:00 07/26/24 05:00 07/26/24 05:00 07/26/24 05:00 07/26/24 05:00 07/26/24 05:00 07/26/24 05:00 07/26/24 04:45 100 07/26/24 04:03 100 07/26/24 04:00 07/26/24 04:00 07/26/24 04:00 07/26/24 04:00 07/26/24 04:00 07/26/24 04:00 07/26/24 04:00 07/26/24 04:00 07/26/24 04:00 07/26/24 04:00 07/26/24 04:00 07/26/24 04:00 07/26/24 04:00 07/26/24 04:00 07/26/24 04:00 07/26/24 04:00 07/26/24 04:00 07/26/24 04:00 07/26/24 04:00 07/26/24 04:00 07/26/24 04:00 07/26/24 04:00 07/26/24 04:00 07/26/24 04:00 07/26/24 04:00 07/26/24 03:44 99 07/26/24 03:05 99 07/26/24 03:00 07/26/24 03:00 07/26/24 03:00 07/26/24 03:00 07/26/24 03:00 07/26/24 02:23 100 Oxymask 2 07/25/24 23:09 100 Oxymask 2 07/25/24 22:00 07/25/24 22:00 07/25/24 22:00 07/25/24 22:00 07/25/24 22:00 07/25/24 22:00 07/25/24 22:00 07/25/24 22:00 07/25/24 22:00 07/25/24 22:00 07/25/24 22:00 07/25/24 22:00 07/25/24 22:00 07/25/24 22:00 07/25/24 22:00 94 07/25/24 21:15 94 Oxymask 2 07/25/24 21:03 96 07/25/24 21:00 07/25/24 21:00 07/25/24 21:00 07/25/24 21:00 07/25/24 21:00 07/25/24 21:00 07/25/24 21:00 07/25/24 21:00 07/25/24 21:00 07/25/24 21:00 07/25/24 21:00 07/25/24 21:00 07/25/24 21:00 07/25/24 21:00 07/25/24 21:00 07/25/24 21:00 07/25/24 21:00 07/25/24 21:00 07/25/24 21:00 07/25/24 21:00 07/25/24 21:00 07/25/24 21:00 07/25/24 21:00 07/25/24 21:00 07/25/24 20:39 96 07/25/24 20:12 94 07/25/24 20:01 07/25/24 20:01 07/25/24 20:01 07/25/24 20:01 07/25/24 20:01 07/25/24 20:01 07/25/24 20:01 07/25/24 20:01 07/25/24 20:00 Oxymask 2 07/25/24 18:06 95 07/25/24 18:05 07/25/24 17:57 Oxymask 5 07/25/24 17:12 97 Oxymask 5 07/25/24 17:03 95 07/25/24 17:00 07/25/24 16:42 93 07/25/24 16:40 07/25/24 16:39 92 07/25/24 16:35 07/25/24 16:35 07/25/24 16:33 97 07/25/24 16:30 40 07/25/24 16:20 Mechanical Vent 07/25/24 16:03 94 Mechanical Vent 07/25/24 16:00 07/25/24 15:51 94 Mechanical Vent 40 07/25/24 15:50 07/25/24 15:40 07/25/24 15:35 96 Mechanical Vent 40 07/25/24 15:35 07/25/24 15:30 92 Mechanical Vent 40 07/25/24 15:27 Mechanical Vent 07/25/24 15:25 94 Mechanical Vent 40 07/25/24 15:22 96 40 07/25/24 15:20 92 Mechanical Vent 40 07/25/24 15:15 92 Mechanical Vent 40 07/25/24 15:10 94 Mechanical Vent 40 07/25/24 15:05 96 Mechanical Vent 40 07/25/24 15:00 98 Mechanical Vent 40 07/25/24 12:42 96 Room Air 07/25/24 10:12 Room Air Pain Intensity Right Posterior Back: Pain Intensity: 5 Transfer of Care Handoff Completed per policy Notes Mental Status: alert / awake / arousable and participated in evaluation Nausea / Vomiting: adequately controlled Pain: adequately controlled Airway Patency, RR, SpO2: stable & adequate BP & HR: stable & adequate Hydration State: stable & adequate Anesthetic Complications: no major complications apparent and Pt Satisfied with anesthetic care
[2024-07-26] MEDS: TXA 10% Non-IV Routes 100 MG/ML VIAL ONE (09:42)
--- NOTE | 2024-07-26 10:13 | XRay Report ---
XR chest 1V portable CLINICAL HISTORY: hemoptysis left lower lobe lung biopsy on 07/25/2024 COMPARISON STUDY: 07/25/2024 FINDINGS: The endotracheal tube is been removed. The left lower lobe mass remains evident. There is m inor discoid atelectasis at the left lung base. There is minimal blunting of the left costophrenic an gle. There is no pneumothorax. Lung yusuf are otherwise clear. IMPRESSION: No new or adverse change is noted. No left lower lobe mass redemonstrated. ACT 112: Negative or not required by law. Electronically signed by: Aurora Murrieta M.D. 07/26/2024 10:12 AM
--- NOTE | 2024-07-26 11:32 | Hospitalist Progress Note ---
Date of Service July 26, 2024 Assessment & Plan (1) Lung mass: (2) Asthma: (3) Anxiety: Plan 48 year old female with PMH of anxiety, lyme disease in 2022, and tobacco use who presented to the ED yesterday with SOB and back pain. In the ED,workup was remarkable for leukocytosis 15.9, neutrophils 11.06, and LDH 318. Chest CTA which revealed lung masses suggestive of malignancy. Sh Brain MRI and CT A/P which were both unremarkable. Lung mass S/p Fiberoptic navigational bronchoscopy with biopsy left lower lobe mass on 07/25/24. There was significant bleeding noted Patient was kept in ER on ventilator but was subsequently extubated on 07/25/24 Continue to monitor Will follow Critical care recommendations Patient will need Oncology follow up once pathology results Counseled again regarding smoking cessation Asthma Chronic, stable. Continue PRN albuterol. Anxiety Chronic, stable. Not on medications at home. DVT Prophylaxis: subQ lovenox held due hemoptysis Code Status: FULL CODE I spent a total of 50 minutes coordinating, documenting and providing care for this patient excluding time spent in the performance of separately billed services or time spent by another provider/QHP. Admission and Anticipated Discharge Date Admission Date: July 24, 2024 Subjective Patient seen and examined Had bronchoscopy yesterday with biopsy with some bleeding with procedure Extubated yesterday Reports cough. Having hemoptysis Denied any other complaints Physical Exam Constitutional: + well hydrated; no acute distress Eyes: PERRL, conjunctivae normal, anicteric sclerae ENMT: external ear and nose normal, oropharynx normal Respiratory: On room air, +mild wheeze Cardiovascular: Rate/Rhythm: regular rate and regular rhythm Gastrointestinal (Abdomen): normal bowel sounds, soft, nontender, no hepatosplenomegaly Musculoskeletal: no cyanosis or clubbing, extremities motor strength 5/5 No pedal edema Neurologic: PERRL, EOMI, accommodation nl, no face palsy, no dysarthria Psychiatric: A+Ox3, euthymic affect Results & Data Results & Data Vital Signs (Past 12 Hours) Vital Signs Temp Pulse Pulse Resp BP Pulse Ox O2 Del Method 07/26/24 10:00 121/77 07/26/24 10:00 121/77 07/26/24 10:00 102 H 23 93 07/26/24 09:42 97 H 14 94 Room Air 07/26/24 09:09 86 20 93 07/26/24 08:15 80 12 100 07/26/24 08:08 84 19 98 Oxymask 07/26/24 08:00 107/73 07/26/24 08:00 Oxymask 07/26/24 08:00 37.1 C 07/26/24 07:57 85 22 97 07/26/24 07:18 88 15 95 07/26/24 07:00 114/67 07/26/24 05:00 36.9 C 113/07/26/24 05:00 113/07/26/24 05:00 113/07/26/24 05:00 113/07/26/24 05:00 113/07/26/24 05:00 113/07/26/24 05:00 113/07/26/24 05:00 113/07/26/24 05:00 113/07/26/24 05:00 113/07/26/24 05:00 113/07/26/24 05:00 113/71 07/26/24 05:00 113/71 07/26/24 05:00 113/71 07/26/24 05:00 113/71 07/26/24 05:00 113/71 07/26/24 04:45 76 16 100 07/26/24 04:03 73 15 100 07/26/24 04:00 100/59 L 07/26/24 04:00 100/59 L 07/26/24 04:00 100/59 L 07/26/24 04:00 100/59 L 07/26/24 04:00 100/59 L 07/26/24 04:00 100/59 L 07/26/24 04:00 100/59 L 07/26/24 04:00 100/59 L 07/26/24 04:00 100/59 L 07/26/24 04:00 100/59 L 07/26/24 04:00 100/59 L 07/26/24 04:00 100/59 L 07/26/24 04:00 100/59 L 07/26/24 04:00 100/59 L 07/26/24 04:00 100/59 L 07/26/24 04:00 100/59 L 07/26/24 04:00 100/59 L 07/26/24 04:00 100/59 L 07/26/24 04:00 100/59 L 07/26/24 04:00 100/59 L 07/26/24 04:00 100/59 L 07/26/24 04:00 100/59 L 07/26/24 04:00 100/59 L 07/26/24 04:00 100/59 L 07/26/24 04:00 100/59 L 07/26/24 03:44 78 17 99 07/26/24 03:05 78 15 99 07/26/24 03:00 101/64 07/26/24 03:00 101/64 07/26/24 03:00 101/64 07/26/24 03:00 101/64 07/26/24 03:00 101/64 07/26/24 02:23 76 24 100 Oxymask O2 Flow Rate FiO2 07/26/24 10:00 07/26/24 10:00 07/26/24 10:00 07/26/24 09:42 21 07/26/24 09:09 07/26/24 08:15 07/26/24 08:08 3 07/26/24 08:00 07/26/24 08:00 2 07/26/24 08:00 07/26/24 07:57 07/26/24 07:18 07/26/24 07:00 07/26/24 05:00 07/26/24 05:00 07/26/24 05:00 07/26/24 05:00 07/26/24 05:00 07/26/24 05:00 07/26/24 05:00 07/26/24 05:00 07/26/24 05:00 07/26/24 05:00 07/26/24 05:00 07/26/24 05:00 07/26/24 05:00 07/26/24 05:00 07/26/24 05:00 07/26/24 05:00 07/26/24 04:45 07/26/24 04:03 07/26/24 04:00 07/26/24 04:00 07/26/24 04:00 07/26/24 04:00 07/26/24 04:00 07/26/24 04:00 07/26/24 04:00 07/26/24 04:00 07/26/24 04:00 07/26/24 04:00 07/26/24 04:00 07/26/24 04:00 07/26/24 04:00 07/26/24 04:00 07/26/24 04:00 07/26/24 04:00 07/26/24 04:00 07/26/24 04:00 07/26/24 04:00 07/26/24 04:00 07/26/24 04:00 07/26/24 04:00 07/26/24 04:00 07/26/24 04:00 07/26/24 04:00 07/26/24 03:44 07/26/24 03:05 07/26/24 03:00 07/26/24 03:00 07/26/24 03:00 07/26/24 03:00 07/26/24 03:00 07/26/24 02:23 2 Laboratory Results Abnormal lab results 07/25/24 07/25/24 07/25/24 Range/Units 14:33 16:06 19:13 WBC 21.32 H (4.8-10.8) K/ul RDW Std Deviation 55.4 H (36.4-46.3) fL RDW Coeff of [place] 15.6 H (11.5-14.5) % MPV (9.4-12.4) fL Neut # (Auto) (1.40-6.50) K/uL [place] # (Auto) (0.11-0.59) K/uL Fibrinogen 452 H 466 H (184-400) mg/dl Creatinine 0.46 L (0.6-1.2) mg/dl Glucose 137 H (70-99(Fasting)) mg/dl 07/26/24 Range/Units 06:10 WBC 17.58 H (4.8-10.8) K/ul RDW Std Deviation 54.1 H (36.4-46.3) fL RDW Coeff of [place] 15.4 H (11.5-14.5) % MPV 9.3 L (9.4-12.4) fL Neut # (Auto) 13.34 H (1.40-6.50) K/uL [place] # (Auto) 1.14 H (0.11-0.59) K/uL Fibrinogen (184-400) mg/dl Creatinine 0.56 L (0.6-1.2) mg/dl Glucose 105 H (70-99(Fasting)) mg/dl (2) Asthma Asthma complication type: unspecified
--- NOTE | 2024-07-26 13:18 | Critical Care Progress Note ---
Date of Service July 26, 2024 Assessment & Plan (1) Lung mass: Plan: Left lower lobe preliminary biopsy from robotic bronchoscopy revealed malignant tissue. Final pathology pending. Patient aware that her diagnosis likely reflects lung cancer. Will inform the patient once final pathology is back. Suspect patient has stage IV lung cancer given multifocal lung nodules bilaterally and mediastinal adenopathy. Fortunately no evidence of metastatic deposits outside of the chest on CT abdomen pelvis and MRI brain. (2) Massive hemoptysis: Plan: Patient had massive bleeding status post left lower lobe biopsy during the bronchoscopic procedure yesterday. She had ongoing hemoptysis and was sent for stat CTA yesterday which did not reveal any active bleeding. Chest x-ray today is stable with a left lower lobe lung mass and no evidence of significant infiltrate otherwise. Given another nebulized TXA treatment today to help reduce bleeding. Continue to monitor in the ICU setting. Continue cough suppressants, nebulized budesonide and will give an additional IV methylprednisone dose today. Hold all anticoagulants and antiplatelets. Admission and Anticipated Discharge Date Admission Date: July 24, 2024 Subjective Patient seen and examined. Still having ongoing. Hemoptysis this morning with bright red blood. Given another nebulized TXA treatment. She is saturating well on room air. Denies any chest pain or shortness of breath. Review of Systems Review of Systems: All systems reviewed & are unremarkable except as noted in HPI & below Physical Exam Physical Exam: Constitutional: Patient appears to be of their stated age. Patient is in no apparent distress. Patient is well-developed. Eyes: Pupils are equal round and reactive to light. Conjunctivae are normal. Anicteric sclera. Ears nose, mouth and throat: Mallampati class 2. Normal posterior oropharynx. Uvula is midline. Neck: Trachea is midline. Visual inspection is normal. Respiratory: Prolonged phase of exhalation. Minimal expiratory wheeze in the anterior lobes in the upper lung yusuf. Cardiovascular: Regular rate and rhythm. No murmurs. No edema. Gastrointestinal: Normal bowel sounds, soft, nontender and nondistended. No hepatosplenomegaly noted. Musculoskeletal: No cyanosis. Patient is able to move all extremities. Strength is 5 out of 5 in the upper and lower extremities. Skin: No rashes, warm dry and intact. Neurologic: No obvious focal neurological deficits seen. Psychiatric: Alert and oriented x3 with a euthymic affect. Results & Data Results & Data Vital Signs (Past 12 Hours) Vital Signs Temp Pulse Pulse Resp BP Pulse Ox O2 Del Method 07/26/24 12:12 88 18 95 07/26/24 12:00 104/72 07/26/24 11:24 95 H 26 H 93 07/26/24 11:00 113/69 07/26/24 10:00 121/77 07/26/24 10:00 121/77 07/26/24 10:00 102 H 23 93 07/26/24 09:42 97 H 14 94 Room Air 07/26/24 09:09 86 20 93 07/26/24 08:15 80 12 100 07/26/24 08:08 84 19 98 Oxymask 07/26/24 08:00 107/73 07/26/24 08:00 Oxymask 07/26/24 08:00 37.1 C 07/26/24 07:57 85 22 97 07/26/24 07:18 88 15 95 07/26/24 07:00 114/67 07/26/24 05:00 36.9 C 113/07/26/24 05:00 113/71 07/26/24 05:00 113/71 07/26/24 05:00 113/71 07/26/24 05:00 113/07/26/24 05:00 113/07/26/24 05:00 113/07/26/24 05:00 113/07/26/24 05:00 113/71 07/26/24 05:00 113/07/26/24 05:00 113/07/26/24 05:00 113/07/26/24 05:00 113/07/26/24 05:00 113/71 07/26/24 05:00 113/71 07/26/24 05:00 113/07/26/24 04:45 76 16 100 07/26/24 04:03 73 15 100 07/26/24 04:00 100/59 L 07/26/24 04:00 100/59 L 07/26/24 04:00 100/59 L 07/26/24 04:00 100/59 L 07/26/24 04:00 100/59 L 07/26/24 04:00 100/59 L 07/26/24 04:00 100/59 L 03/14/25 04:00 100/59 L 07/26/24 04:00 100/59 L 07/26/24 04:00 100/59 L 07/26/24 04:00 100/59 L 07/26/24 04:00 100/59 L 07/26/24 04:00 100/59 L 07/26/24 04:00 100/59 L 07/26/24 04:00 100/59 L 07/26/24 04:00 100/59 L 07/26/24 04:00 100/59 L 07/26/24 04:00 100/59 L 07/26/24 04:00 100/59 L 07/26/24 04:00 100/59 L 07/26/24 04:00 100/59 L 07/26/24 04:00 100/59 L 07/26/24 04:00 100/59 L 07/26/24 04:00 100/59 L 07/26/24 04:00 100/59 L 07/26/24 03:44 78 17 99 07/26/24 03:05 78 15 99 07/26/24 03:00 101/64 07/26/24 03:00 101/64 07/26/24 03:00 101/64 07/26/24 03:00 101/64 07/26/24 03:00 101/64 07/26/24 02:23 76 24 100 Oxymask O2 Flow Rate FiO2 07/26/24 12:12 07/26/24 12:00 07/26/24 11:24 07/26/24 11:00 07/26/24 10:00 07/26/24 10:00 07/26/24 10:00 07/26/24 09:42 21 07/26/24 09:09 07/26/24 08:15 07/26/24 08:08 3 07/26/24 08:00 07/26/24 08:00 2 07/26/24 08:00 07/26/24 07:57 07/26/24 07:18 07/26/24 07:00 07/26/24 05:00 07/26/24 05:00 07/26/24 05:00 07/26/24 05:00 07/26/24 05:00 07/26/24 05:00 07/26/24 05:00 07/26/24 05:00 07/26/24 05:00 07/26/24 05:00 07/26/24 05:00 07/26/24 05:00 07/26/24 05:00 07/26/24 05:00 07/26/24 05:00 07/26/24 05:00 07/26/24 04:45 07/26/24 04:03 07/26/24 04:00 07/26/24 04:00 07/26/24 04:00 07/26/24 04:00 07/26/24 04:00 07/26/24 04:00 07/26/24 04:00 07/26/24 04:00 07/26/24 04:00 07/26/24 04:00 07/26/24 04:00 07/26/24 04:00 07/26/24 04:00 07/26/24 04:00 07/26/24 04:00 07/26/24 04:00 07/26/24 04:00 07/26/24 04:00 07/26/24 04:00 07/26/24 04:00 07/26/24 04:00 07/26/24 04:00 07/26/24 04:00 07/26/24 04:00 07/26/24 04:00 07/26/24 03:44 07/26/24 03:05 07/26/24 03:00 07/26/24 03:00 07/26/24 03:00 07/26/24 03:00 07/26/24 03:00 07/26/24 02:23 2 Coding Level of Care Code 19766 SUB INP/OBS CARE 2/35MIN Diagnoses Lung mass R91.8 Massive hemoptysis R04.2
[2024-07-26] MEDS: methylPREDNISolone 125 MG/2 ML VIAL IV STA (13:33)
[2024-07-26] MEDS: TXA 10% Non-IV Routes 100 MG/ML VIAL NEB ONE (14:58)
[2024-07-26] MEDS: LORazepam 2 MG/1 ML VIAL IV PRN (17:34)
[2024-07-26] MEDS: BUDESONIDE 0.5 MG/2 ML VIAL (PULMICORT) NEB SCH (19:58)
[2024-07-26] MEDS: ALBUTEROL 0.083% NEBU SOLN 3 ML VIAL NEB PRN (19:58)
[2024-07-27 05:01] LABS: Basophils # (auto) 0.04 K/uL (0.00-0.20); Basophils % (auto) 0.2 %; Eosinophils # (auto) 0.12 K/uL (0.00-0.50); Eosinophils % (auto) 0.7 %; Hematocrit (blood only) 41.6 % (37.0-47.0); Hemoglobin 14.2 g/dl (12.0-16.0); Immature Granulocytes % (auto) 0.6 %; Lymphocytes % (auto) 15.5 %; Mean Corpuscular Hemoglobin 32.5 pg (25.0-34.0); Mean Corpuscular Hgb Conc 34.1 g/dL (32.0-36.0); Mean Corpuscular Volume 95.2 fL (80.0-100.0); Mean Platelet Volume 9.8 fL (9.4-12.4); Monocytes # (auto) 1.22 K/uL (0.11-0.59); Monocytes % (auto) 6.7 %; Neutrophils % (auto) 76.3 %; Platelet Count 350 K/uL (130-400); RDW Coefficient of Variation 15.1 % (11.5-14.5); RDW Standard Deviation 53.5 fL (36.4-46.3); Red Blood Count 4.37 M/uL (4.20-5.40); White Blood Count 18.08 K/ul (4.8-10.8)
[2024-07-27 05:15] LABS: BUN Creatinine Ratio 13.8 (10-20); Calcium 9.1 mg/dl (8.6-10.3); Creatinine Clr Calc Pharmacy 100.2 ml/min; Potassium 4.1 mmol/L (3.5-5.1)
--- NOTE | 2024-07-27 07:30 | Pulmonology Progress Note ---
Date of Service July 27, 2024 Assessment & Plan (1) Lung mass: (2) Massive hemoptysis: Plan CTA chest 07/25/2024: Centrilobular and paraseptal emphysema appreciated bilaterally Multiple pulmonary nodules appreciated bilaterally solid predominantly right lower lobe and groundglass 4.5 x 3.8 cm left lower lobe mass with no active bleeding Significant subcarinal lymphadenopathy -- Postprocedural hemoptysis Bronchoscopy performed 07/25/2024 10 mL 1 nystatin thousand epi was instilled followed by 200 mL of cold saline during the procedure Tranexamic acid nebulized was given 07/26/2024 CTA 07/25/2024 which did not reveal any active bleeding but hemorrhage surrounding lower lobe mass Hold all anticoagulants and antiplatelets. -- Adenocarcinoma of the lung With significant mediastinal lymphadenopathy No evidence of metastatic deposits outside of the chest on CT abdomen pelvis and MRI brain. -- COPD with emphysema Not on any inhalers at home Given the active bleed I would not like the patient to be started on any inhalers right now She can follow-up with Dr. Avina as an outpatient to decide the regimen Plan: Patient having very minimal blood-tinged sputum which is expected in somebody who had bronchoscopy done. H&H is stable Chest x-ray does not show any worsening of the left-sided mass Continue with antitussive medication [id number] for the next 5 days Recommending tapering dose of prednisone over the next 5-7 days Follow-up with Dr. Avina as outpatient Case was discussed with primary team Please note the above document was generated using voice recognition software. It may contain grammatical, syntax or spelling errors.Any formal questions or concerns about the content, text or information contained within the body of this dictation should be directly addressed to the provider for clarification. Admission and Anticipated Discharge Date Admission Date: July 24, 2024 Subjective Patient seen and examined at bedside. No acute distress, no adverse events overnight. Coughing up little bit of blood-tinged phlegm which is significantly improved compared to before Denies any chest pain No dizziness, no palpitation Appetite is fair Review of Systems 2 Review of Systems: All systems reviewed & are unremarkable except as noted in Subjective Physical Exam 2 Physical Exam: Constitutional: No acute distress HEENT: EOMI, PERRLA Respiratory system: Good air entry bilaterally, no rhonchi, no crackles, minimal expiratory wheeze which went away on subsequent breaths CVS: S1-S2 positive, no murmurs or gallops, tachycardia Abdomen: Soft, nontender, nondistended, positive bowel sounds x4 Extremities: +2 pulses bilaterally radialis/ dorsalis pedis, no cyanosis, no edema Neuro: Awake alert oriented x3 Psych: Normal mood and affect G/U: No [place] Skin: no rashes, warm and dry Lymphatic: no cervical or axillary lymphadenopathy Results & Data Results & Data Vital Signs (Past 12 Hours) Vital Signs Pulse Pulse Resp BP Pulse Ox O2 Del Method 07/27/24 01:00 113/81 07/27/24 01:00 113/81 07/27/24 01:00 113/81 07/27/24 01:00 113/81 07/27/24 01:00 113/81 07/27/24 01:00 113/81 07/27/24 01:00 113/81 07/27/24 01:00 113/81 07/27/24 01:00 94 H 24 95 07/27/24 00:03 83 21 92 07/27/24 00:00 96/67 L 07/27/24 00:00 96/67 L 07/27/24 00:00 96/67 L 07/27/24 00:00 96/67 L 07/27/24 00:00 96/67 L 07/27/24 00:00 96/67 L 07/27/24 00:00 96/67 L 07/27/24 00:00 96/67 L 07/27/24 00:00 96/67 L 07/27/24 00:00 96/67 L 07/27/24 00:00 96/67 L 07/27/24 00:00 96/67 L 07/27/24 00:00 96/67 L 07/27/24 00:00 96/67 L 07/27/24 00:00 96/67 L 07/27/24 00:00 96/67 L 07/27/24 00:00 96/67 L 07/27/24 00:00 96/67 L 07/27/24 00:00 96/67 L 07/27/24 00:00 96/67 L 07/26/24 23:36 80 21 98 07/26/24 23:00 104/63 07/26/24 23:00 104/63 03/14/25 23:00 104/07/26/24 23:00 10407/26/24 23:00 10407/26/24 23:00 10407/26/24 23:00 104/07/26/24 23:00 10407/26/24 23:00 10407/26/24 23:00 10407/26/24 23:00 10407/26/24 23:00 10407/26/24 23:00 10407/26/24 23:00 104/07/26/24 23:00 10407/26/24 23:00 10407/26/24 23:00 10407/26/24 23:00 10407/26/24 23:00 10407/26/24 22:00 86 28 H 94 07/26/24 21:09 92 H 22 90 07/26/24 21:00 97/60 L 07/26/24 21:00 97/60 L 07/26/24 21:00 97/60 L 07/26/24 21:00 97/60 L 07/26/24 21:00 97/60 L 07/26/24 21:00 97/60 L 07/26/24 21:00 97/60 L 07/26/24 21:00 97/60 L 07/26/24 21:00 97/60 L 07/26/24 21:00 97/60 L 07/26/24 21:00 97/60 L 07/26/24 21:00 97/60 L 07/26/24 21:00 97/60 L 07/26/24 21:00 97/60 L 07/26/24 21:00 97/60 L 07/26/24 21:00 97/60 L 07/26/24 21:00 97/60 L 07/26/24 21:00 97/60 L 07/26/24 21:00 97/60 L 07/26/24 21:00 97/60 L 07/26/24 21:00 97/60 L 07/26/24 21:00 97/60 L 07/26/24 20:42 100 H 27 H 91 07/26/24 20:09 95 H 18 98 07/26/24 20:00 07/26/24 20:00 07/26/24 20:00 07/26/24 20:00 07/26/24 20:00 07/26/24 20:00 07/26/24 20:00 07/26/24 20:00 07/26/24 20:00 07/26/24 20:00 07/26/24 20:00 07/26/24 20:00 07/26/24 20:00 07/26/24 20:00 07/26/24 20:00 07/26/24 20:00 Room Air 07/26/24 19:59 88 16 97 Room Air 07/26/24 19:45 94 H 18 93 Laboratory Results 07/27/24 04:10 07/27/24 04:10 PG Care Time/CCT Total # of Minutes Spent Total Time Spent with Patient: Total time spent is greater than 50% in coordination of care (as documented) at patient's floor/unit and/or counseling patient: Coding Level of Care Code 52780 SUB INP/OBS CARE 2/35MIN Diagnoses Lung mass R91.8 Massive hemoptysis R04.2
[2024-07-27 08:09] VITALS: TEMP 98.6
--- NOTE | 2024-07-27 08:47 | XRay Report ---
EXAM: XR chest 1V portable CLINICAL HISTORY: F/U LTV/PMB. TECHNIQUE: An X-ray image of the chest is obtained in AP projection. COMPARISON: 07/25/2024 CT FINDINGS: Pulmonary Parenchyma: Left mid lung zone well defined lobulated mass lesion measuring 4 cm in diameter. No definite consolidation or collapse. Obscured right costopherenic recess. No evidence of left pleural effusion or pleural thickening. Heart and Mediastinum: Heart size and shape are normal. No mediastinal widening or masses. No hilar or mediastinal lymphadenopathy. Bony Thorax: Bony thorax appears intact without fractures or deformities. Soft Tissues: Soft tissues overlying the chest wall are unremarkable. IMPRESSION: Left mid lung zone mass lesion. Stable since the last study. Blunted right costophrenic angle denoting small effusion. New finding. Electronically signed by Yusuf Sanchez 07-27-2024 08:46 AM
[2024-07-27 09:51] VITALS: RESP 19
--- NOTE | 2024-07-27 10:41 | Discharge Summary ---
Date of Service July 27, 2024 Admission HPI Per Admitting Provider The patient is a 48-year-old female with a past medical history of anxiety, lyme's disease 2022, recent sinus infection, lifelong smoker who presents to the ED on 07/24/2024 with complaints of worsening shortness of breath and back pain. Patient reports about 2 days ago she developed an upper right back pain when taking a deep breath. She reports that the pain had been so bad she was unable to sleep at night. She trialed Tylenol and Motrin without any relief. She also reported some associated shortness of breath and intermittent wheezing. She reports about 4 months ago she developed green sputum that she attributed to a possible sinus infection. She had taken antibiotics for this without much improvement. She denies any fever/chills/sinus congestion. Denies any recent respiratory illness. Does report some chest congestion and intermittent chest tightness. Reports using her albuterol inhaler intermittently. On arrival to the ED, labs remarkable for WBC 15.9, hemoglobin 16.4, creatinine 0.50 Troponin unremarkable, EKG unremarkable Chest CTA showed: 1. No pulmonary emboli identified. 2. 4.5 x 3.8 cm spiculated left lower lobe mass. This is suggestive of a primary lung malignancy. Pulmonary consultation is recommended. 3. Numerous lower lobe predominant circumscribed pulmonary nodules. These are indeterminate but worrisome for metastases. 4. 1.8 x 1.5 cm spiculated right upper lobe nodule which occludes a segmental branch to the anterior segment of the right upper lobe. 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 5. Numerous groundglass nodular opacities throughout the lungs. These favor synchronous lesions although a superimposed infectious process could appear similar. No consolidation to suggest pneumonia. 6. Mildly enlarged mediastinal and bilateral hilar lymph nodes. Brady involvement cannot be excluded. Admission Exam Per Admitting Provider Constitutional: WD/WN, vitals as above + ill appearing and + thin Eyes: PERRL, conjunctivae normal, anicteric sclerae ENMT: external ear and nose normal, oropharynx normal Neck: trachea midline, no thyromegaly Respiratory: normal respiratory effort, lungs clear to auscultation no labored breathing Auscultation: + rales and + rhonchi Cardiovascular: RRR, no murmur, no edema Gastrointestinal (Abdomen): normal bowel sounds, soft, nontender, no hepatosplenomegaly Musculoskeletal: no cyanosis or clubbing, extremities motor strength 5/5 Skin: no rashes, warm and dry Neurologic: PERRL, EOMI, accommodation nl, no face palsy, no dysarthria Psychiatric: A+Ox3, euthymic affect Lymphatic: no cervical or axillary lymphadenopathy Principal Diagnosis New lung cancer (adenocarcinoma) Discharge Exam Constitutional + well hydrated; no acute distress Eyes PERRL, conjunctivae normal, anicteric sclerae ENMT external ear and nose normal, oropharynx normal Respiratory On room air, good air entry bilaterally Cardiovascular Rate/Rhythm: regular rate and regular rhythm Gastrointestinal (Abdomen) normal bowel sounds, soft, nontender, no hepatosplenomegaly Musculoskeletal no cyanosis or clubbing, extremities motor strength 5/5 Neurologic PERRL, EOMI, accommodation nl, no face palsy, no dysarthria Psychiatric A+Ox3, euthymic affect Discharge Data Allergies Allergy/AdvReac Type Severity Reaction Status Date / Time Sulfa (Sulfonamide Allergy Severe Swelling Verified 09/30/21 12:22 Antibiotics) of Lip/Tongue/Throat Consultations 07/24/24 13:26 ED Decision to Admit Stat 07/24/24 13:27 Consult Pulmonology Routine Consult Pulmonology Routine Procedures Performed Operation Date: 07/25/24 07:00 Actual Procedures p Robotic Assisted Navigational Bronchoscopy, Transbronchial Needle Aspiration, Transbronchial Biopsy under Fluoroscopy(Not Applicable) - Mauri Avina MD Ordered Studies 07/24/24 11:02 CT angio chest PE protocol Stat 07/24/24 13:27 MRI Brain [MR brain wo/w con] Stat 07/24/24 14:10 CT abdomen pelvis wo/w con Stat 07/25/24 13:30 FL bronchoscopy Routine 07/25/24 19:05 CTA chest w con [CT angio chest w con] Stat Hospital Course (1) Lung mass: (2) Asthma: (3) Anxiety: Plan 48 year old female with PMH of anxiety, lyme disease in 2022, and tobacco use who presented to the ED yesterday with SOB and back pain. In the ED,workup was remarkable for leukocytosis 15.9, neutrophils 11.06, and LDH 318. Chest CTA which revealed lung masses suggestive of malignancy. Brain MRI and CT A/P which were both unremarkable. Lung mass Primary Lung Adenocarcinoma S/p Fiberoptic navigational bronchoscopy with biopsy left lower lobe mass on 07/25/24. There was significant bleeding noted Patient was kept in ER on ventilator but was subsequently extubated on 07/25/24 Pathology confirmed Primary Lung adenocarcinoma Discussed findings with patient and boyfriend Patient plans to follow up with Oncology here Advised to follow up with Pulmonology as well Counseled regarding smoking cessation Reports hemoptysis resolving Discharged on prednisone taper Total Time Total Time Spent Total Time Spent (In Minutes): 35 Total Time Includes: Examination of the Patient, Discharge Planning, Medication Reconciliation and Communication With Other Providers Discharge Plan Discharge Items Patient Disposition: Home - Self-Care Reason For Visit: BACK PAIN, SOB Discharge Diagnosis: New lung cancer (adenocarcinoma) Activity: Resume your previous activity Non-emergency contact: Primary Care Provider, Oncologist and Bunch [employer] Hand Call non-emergency contact if: you have any medication questions Follow-up/Referrals: Mauri Avina MD [Physician] - Joshua Sunshine PA-C [Primary Care Provider] - 08/05/24 10:30 am Rhea Lima MD [Physician] - (Call for follow up) Diet: Regular Addtl Attending Provider Instructions: Mrs Bojorquez You had presented to the hospital with back pain and shortness of breath You were evaluated and found to have lung mass. You had bronchoscopy and biopsy which revealed lung cancer. Please ensure follow up with Oncology (Cancer specialist) and Pulmonology (Lung doctor) Please quit smoking as we discussed. It was a pleasure taking care of you. Pending Studies at Discharge: No Stand-Alone Forms: My [facility], Smoking Cessation Medications and DC Order Prescriptions: New codeine-guaifenesin [Guaifenesin AC] 10-100 mg/5 mL Liquid 5 ml PO TID 5 Days Qty: 75 0RF prednisone 20 mg tablet See Rx Instructions .ROUTE .COMPLEX Qty: 9 0RF Rx Instructions: Take 40mg daily for 3 days, then 20mg daily for 3 days and then stop Continued albuterol sulfate 90 mcg/actuation HFA aerosol inhaler 1 inh inhalation QID PRN (Reason: sob) Nexplanon 68 mg implant 1 implant subdermal DIRECTED acetaminophen [Pain Reliever (acetaminophen)] 500 mg tablet 1,000 mg PO TID PRN (Reason: Pain) Discharge Orders: Discharge Order (Routine); Ordered 07/27/24 Ordered By: Chetna Lucio Admission Data Admit Date/Time: 07/24/24 13:27 Attending Provider: Chetna Lucio I. Admit Provider: Efrain Naranjo Primary Care Provider: Joshua Sunshine Other Providers: Mauri Avina; Efrain Naranjo Other Interventions: Discharge Summary Assessment (RN) Last Done: 07/27/24 10:52
[2024-07-27 10:56] VITALS: BP 136/75; PULSE 90; O2SAT 92
== END 2024-07-27 11:30 | disposition home or self-care (01) | DRG 167 ==
LOC: ED 10:49 → SUATTDRO 13:27 → 3N 13:27 → 1E 07-25 15:06